=== PATIENT | female | born 1940 | race Caucasian/White ===

== ENCOUNTER 2022-06-25 15:21 | Inpatient (IN) | payer BC, MEDICARE ==
[~2022-06-25] VITALS: Ht 165.1 cm; Wt 52.2 kg
[2022-06-25] MEDS ORDERED: CEFEPIME 1 GM in IV D5W 50 ML IV ONE (16:00)
[2022-06-25] MEDS ORDERED: VANCOMYCIN 1 GM in IV D5W 250 ML IV ONE (16:00)
[2022-06-25 16:09] LABS: BASOPHILS # (AUTO) 0.1 K/uL (0.0-0.2); BASOPHILS % (AUTO) 0.5 % (0.0-2.0); EOSINOPHILS % (AUTO) 3.5 % (0.0-6.0); HEMATOCRIT 37 % (33-45); HEMOGLOBIN 11.9 g/dL (11.5-14.8); LYMPHOCYTES # (AUTO) 2.3 K/uL (0.8-4.8); LYMPHOCYTES % (AUTO) 22.4 % (20.0-44.0); MEAN CORPUSCULAR HGB CONC 33 g/dl (31.0-36.0); MEAN CORPUSCULAR VOLUME 93 fL (82-100); MONOCYTES # (AUTO) 0.9 K/uL (0.1-1.30); MONOCYTES % (AUTO) 9.2 % (2.0-12.0); NEUTROPHILS # (AUTO) 6.6 K/uL (1.8-8.9); NEUTROPHILS % (AUTO) 64.4 % (43.0-81.0); RED BLOOD CELL COUNT(AUTO) 3.97 MIL/uL (4.0-5.2); WHITE BLOOD COUNT (AUTO) 10.2 K/uL (4.3-11.0)
[2022-06-25] MEDS ORDERED: BREX1TAB PO (16:13)
[2022-06-25] MEDS ORDERED: OMEG-167 PO (16:13)
[2022-06-25] MEDS ORDERED: CELE100C98 PO (16:13)
[2022-06-25] MEDS ORDERED: DONE10TA44 PO (16:13)
[2022-06-25] MEDS ORDERED: ATOR10TA PO (16:13)
[2022-06-25] MEDS ORDERED: DIVA125T32 PO (16:13)
[2022-06-25] MEDS ORDERED: FURO20TA4 PO (16:13)
--- NOTE | 2022-06-25 16:14 | NUR ---
CLEANSED L LOWER EXTREMITY WOUND WITH HYDROGEN PEROXIDE. FLUSHED WOUND WITH NORMAL SALINE. LEFT OPEN TO AIR. NO MAGGOTS LEFT IN THE WOUND. WILL CONTINUE TO MONITOR.
[2022-06-25 16:20] LABS: CALCIUM, SERUM 8.8 mg/dL (8.5-10.1); CARBON DIOXIDE 27 mmol/L (21-32); CHLORIDE 106 mmol/L (98-107); CREATININE 1.4 mg/dL (0.6-1.3); GLUCOSE 104 mg/dL (74-106); POTASSIUM 3.7 mmol/L (3.5-5.1); SODIUM SERUM 142 mmol/L (136-145); UREA NITROGEN, BLOOD 21 mg/dL (7-18)
[2022-06-25 16:37] LABS: ALANINE AMINOTRANSFERASE 16 U/L (12-78); ALBUMIN 3.3 g/dL (3.4-5.0); ALKALINE PHOSPHATASE 86 U/L (46-116); ASPARTATE AMINOTRANSFERASE 15 U/L (15-37); BILIRUBIN,DIRECT 0.1 mg/dL (0.0-0.2); BILIRUBIN,TOTAL 0.5 mg/dL (0.2-1.0); TOTAL PROTEIN, SERUM 6.7 g/dL (6.4-8.2)
[2022-06-25 16:56] LABS: PLATELET COUNT (AUTO) 139 K/uL (150-450)
[2022-06-25] MEDS ORDERED: IV NS 0.9% 1,000 ML IV ONE (17:30)
--- NOTE | 2022-06-25 19:02 | NUR ---
URINE SAMPLE COLLECTED AND SENT TO LAB
[2022-06-25 19:46] LABS: BILIRUBIN,URINE NEGATIVE (NEGATIVE); COLOR,URINE YELLOW (YELLOW); LEUKOCYTE ESTERASE ,URINE LARGE (NEGATIVE); NITRITE, URINE POSITIVE (NEGATIVE); PROTEIN,URINE NEGATIVE (NEGATIVE); UGLUCOSE NEGATIVE (NEGATIVE); UROBILINOGEN,URINE 0.2 EU/dL (0.2)
[2022-06-25 19:51] LABS: BACTERIA,URINE 2+ /HPF (None Seen); MUCUS,URINE Few /LPF (None Seen); SQUAMOUS EPITHELIAL CELL,UR 0-2 /HPF (None Seen); WBC,URINE 51-80 /HPF (0-3)
[2022-06-25] MEDS ORDERED: ONDANSETRON HCL/PF 4 MG/2 ML VIAL IVP PRN (23:00)
[2022-06-25] MEDS ORDERED: ACETAMINOPHEN 325 MG TABLET PO PRN (23:00)
[2022-06-25] MEDS ORDERED: MAGNESIUM HYDROXIDE 30 ML UDC PO PRN (23:00)
[2022-06-25] MEDS ORDERED: CELECOXIB 100 MG CAPSULE ONE (23:39)
[2022-06-25] MEDS ORDERED: DIVALPROEX SODIUM 250 MG TABLET.DR PO ONE (23:39)
[2022-06-25] MEDS ORDERED: CEFTRIAXONE 1 G VIAL ONE (23:40)
[2022-06-25] MEDS: DIVALPROEX SODIUM 125 MG TABLET.DR PO SCH (23:49)
[2022-06-25] MEDS: CELECOXIB 100 MG CAPSULE PO SCH (23:49)
[2022-06-25] MEDS: CEFTRIAXONE 1 G in IV D5W 50 ML IV SCH (23:49)
[2022-06-26] MEDS ORDERED: ENOXAPARIN SODIUM 30 MG/0.3 ML DISP.SYRIN ONE (01:37)
[2022-06-26] MEDS: IV NS 0.9% 1,000 ML IV PRN ×2 (01:51→11:21)
[2022-06-26] MEDS: ENOXAPARIN SODIUM 30 MG/0.3 ML DISP.SYRIN SQ SCH ×2 (01:52→22:00)
--- NOTE | 2022-06-26 01:53 | NUR ---
NEW IV ESTABLISHED 20G RF
--- NOTE | 2022-06-26 04:30 | NUR ---
PATIENT RESTING COMFORTABLY WITH DAUGHTER AT BEDSIDE
[2022-06-26 05:49] LABS: BASOPHILS % (AUTO) 0.6 % (0.0-2.0); EOSINOPHILS % (AUTO) 6.4 % (0.0-6.0); HEMATOCRIT 29 % (33-45); HEMOGLOBIN 9.6 g/dL (11.5-14.8); LYMPHOCYTES # (AUTO) 1.8 K/uL (0.8-4.8); LYMPHOCYTES % (AUTO) 25.2 % (20.0-44.0); MEAN CORPUSCULAR HGB CONC 33 g/dl (31.0-36.0); MEAN CORPUSCULAR VOLUME 93 fL (82-100); MONOCYTES # (AUTO) 0.8 K/uL (0.1-1.30); MONOCYTES % (AUTO) 11.5 % (2.0-12.0); NEUTROPHILS # (AUTO) 4.1 K/uL (1.8-8.9); NEUTROPHILS % (AUTO) 56.3 % (43.0-81.0); PLATELET COUNT (AUTO) 118 K/uL (150-450); RED BLOOD CELL COUNT(AUTO) 3.15 MIL/uL (4.0-5.2); WHITE BLOOD COUNT (AUTO) 7.2 K/uL (4.3-11.0)
[2022-06-26 06:15] LABS: CALCIUM, SERUM 7.1 mg/dL (8.5-10.1); CARBON DIOXIDE 24 mmol/L (21-32); CHLORIDE 115 mmol/L (98-107); CREATININE 1.1 mg/dL (0.6-1.3); GLUCOSE 85 mg/dL (74-106); MAGNESIUM 1.7 mg/dL (1.8-2.4); PHOSPHORUS 2.9 mg/dL (2.5-4.9); POTASSIUM 3.5 mmol/L (3.5-5.1); SODIUM SERUM 147 mmol/L (136-145); UREA NITROGEN, BLOOD 13 mg/dL (7-18)
[2022-06-26 06:19] LABS: CHOLESTEROL 106 mg/dL (<200); HDL CHOLESTEROL 44 mg/dL (40-60); LDL 56 mg/dL (0-99); TRIGLYCERIDES 38 mg/dL (30-150)
--- NOTE | 2022-06-26 07:30 | NUR ---
RECEIVED PT FROM [facility] PT ASLEEPY RESPIRATION Spont and easy doughter at bed side condition up date
--- NOTE | 2022-06-26 07:41 | NUR ---
GOT BED 327-2
--- NOTE | 2022-06-26 08:17 | NUR ---
TO ROOM 327-2 HAND OFF TO TIMUR. Danyel RN OPEN WOUND on lt leg redness and clean and dry
--- NOTE | 2022-06-26 08:30 | NUR ---
RN NOTE PATIENT CAME TO UNIT FROM ER, REPORT RECEIVED FROM ER NURSE. PATIENT CAME VIA GURNEY WITH NO SIGNS OF DISTRESS NOTED. PATIENT WAS ORIENTED TO ROOM SET UP AND EDUCATED ON THE USE OF CALL BOYCE. NAME ARM BAND ON, ALL BELONGINGS CHECKED AND SIGNED. SKIN ASSESSMENT DONE AND PICTURES TAKEN. PATIENT AWAKE IN BED RESTING. A/O X 3, CONFUSED AT TIMES. NO PAIN NOTED AT THIS TIME. ON ROOM AIR, NO DISTRESS OR SHORTNESS OF BREATH NOTED. IV ACCESS RAC #18G, INTACT, PATENT AND FLUSHING WELL. FALL AND SAFETY MEASURES IN PLACE, BED IN LOW AND LOCK POSITION, CALL LIGHT AND TABLE WITHIN EASY REACH, SIDE RAILS UP X2. WILL CONTINUE TO MONITOR.
--- NOTE | 2022-06-26 09:27 | NUR ---
WOUND CARE CONSULT: PT PRESENTS WITH LEFT LOWER LEG WOUND AND SOME REDNESS WITH EDEMA TO LOWER EXTREMITIES, PRESENT ON ADMISSION. DR MARIANO CALLED FOR DPM CONSULT. IN AGREEMENT WITH PLAN OF CARE.
[2022-06-26] MEDS ORDERED: MAGNESIUM OXIDE 400 MG TABLET PO ONE (10:00)
[2022-06-26] MEDS: CELECOXIB 100 MG CAPSULE PO SCH ×2 (11:11→16:50)
[2022-06-26] MEDS: DIVALPROEX SODIUM 125 MG TABLET.DR PO SCH ×2 (11:11→22:00)
[2022-06-26 13:29] VITALS: BP 136/58
--- NOTE | 2022-06-26 15:18 | NUR ---
RN NOTE LAB CALLED PATIENT BLOOD CULTURE CAME BACK POSITIVE (GRAM POSITIVE COCCI IN CLUSTERS) DOCTOR INFORMED AND CHARGE NURSE AWARE.
[2022-06-26 16:00] VITALS: BP 140/89
[2022-06-26] MEDS: VANCOMYCIN 1 GM in IV D5W 250 ML IV SCH (16:51)
[2022-06-26] MEDS: ATORVASTATIN 10 MG TABLET PO SCH (17:17)
--- NOTE | 2022-06-26 19:34 | NUR ---
RN CLOSING NOTE PATIENT AWAKE IN BED RESTING. A/O X 3, CONFUSED AT TIMES. NO PAIN NOTED AT THIS TIME. ON ROOM AIR, NO DISTRESS OR SHORTNESS OF BREATH NOTED. IV ACCESS LAC #18G, INTACT, PATENT AND FLUSHING WELL. SCHEDULE MEDICATIONS GIVEN. FALL AND SAFETY MEASURES IN PLACE, BED IN LOW AND LOCK POSITION, CALL LIGHT AND TABLE WITHIN EASY REACH, SIDE RAILS UP X2. WILL ENDORSE TO BULL LADLE TENDER.
--- NOTE | 2022-06-26 19:44 | NUR ---
MS/TELE/RN RECEIVED PATIENT IN BED APPEARS SLEEPING, NO SIGNS OF DISTRESS NOTED, CALL LIGHT IN REACH FALL PRECAUTIONS PER PROTOCOL IMPLEMENTED, WILL MONITOR.
[2022-06-26 20:37] VITALS: BP 130/69
[2022-06-26] MEDS: CEFTRIAXONE 1 G in IV D5W 50 ML IV SCH (20:52)
[2022-06-26] MEDS: DONEPEZIL 5 MG TABLET PO SCH (22:00)
[2022-06-27] MEDS ORDERED: HALOPERIDOL LACTATE INJ 5 MG/ML VIAL IV ONE
--- NOTE | 2022-06-27 01:12 | NUR ---
MS/TELE/RN PATIENT IS PROGRESSIVELY CONFUSED AND AGITATED, YELLING , TRYING TO GET OUT OF BED, VERY HIGH FALL RISK, TRYING TO HIT ANYBODY WHO COMES NEAR HER, OBTAINED AN ORDER FOR HALDOL 1 MG IVP X 1. CHEMIST STEROIDS WAS CALLED TO HELP IN ADMINISTERING THE MEDICATION. WILL CLOSELY MONITOR FOR SAFETY.
--- NOTE | 2022-06-27 02:22 | NUR ---
MS/TELE/RN PATIENT UNABLE TO URINATE, BLADDER SCAN DONE, >400 MLS. OBTAINED AN ORDER TO DO STRAIGHT CATH X 1. STRAIGHT CATH DONE, 410 MLS, CLEAR, LUAN URINE OUTPUT NOTED. WILL CONTINUE TO MONITOR.
--- NOTE | 2022-06-27 06:21 | NUR ---
MS/TELE/RN PATIENT IS SLEEPING, NO SIGNS OF DISTRESS NOTED, CALL LIGHT IN REACH, ALL NEEDS ATTENDED AT THIS TIME, WILL CONTINUE TO MONITOR.
[2022-06-27 06:46] LABS: BASOPHILS % (AUTO) 0.2 % (0.0-2.0); EOSINOPHILS % (AUTO) 4.4 % (0.0-6.0); HEMATOCRIT 31 % (33-45); LYMPHOCYTES # (AUTO) 1.4 K/uL (0.8-4.8); LYMPHOCYTES % (AUTO) 17.4 % (20.0-44.0); MEAN CORPUSCULAR HGB CONC 33 g/dl (31.0-36.0); MEAN CORPUSCULAR VOLUME 93 fL (82-100); MONOCYTES # (AUTO) 0.9 K/uL (0.1-1.30); MONOCYTES % (AUTO) 11.6 % (2.0-12.0); NEUTROPHILS # (AUTO) 5.2 K/uL (1.8-8.9); NEUTROPHILS % (AUTO) 66.4 % (43.0-81.0); PLATELET COUNT (AUTO) 117 K/uL (150-450); RED BLOOD CELL COUNT(AUTO) 3.31 MIL/uL (4.0-5.2); WHITE BLOOD COUNT (AUTO) 7.9 K/uL (4.3-11.0)
[2022-06-27 07:02] LABS: CALCIUM, SERUM 8.4 mg/dL (8.5-10.1); CREATININE 1.2 mg/dL (0.6-1.3); MAGNESIUM 2.2 mg/dL (1.8-2.4); POTASSIUM 4.1 mmol/L (3.5-5.1)
--- NOTE | 2022-06-27 07:20 | NUR ---
RN CLOSING NOTE PATIENT AWAKE TRYING TO GET OUT OF HER ROOM, PATIENT IS UNSTABLE GATE, A/O X 2-3, CONFUSED, COMBATIVE, SCREAMING, TRYING TO PULL IV LINES AND NOT FOLLOWING REDIRECTIONS. NO PAIN NOTED AT THIS TIME. ON ROOM AIR, NO DISTRESS OR SHORTNESS OF BREATH NOTED. IV ACCESS RFA #22G, INTACT, PATENT AND FLUSHING WELL, PATIENT HAD PULLED OUT HER IV TWICE. FALL AND SAFETY MEASURES IN PLACE, BED IN LOW AND LOCK POSITION, CALL LIGHT AND TABLE WITHIN EASY REACH, SIDE RAILS UP X2. ORDER FOR WRIST SOFT RESTRAINTS WAS PLACED. WILL CONTINUE TO MONITOR. Addendum: 06/27/22 at 1856 by Ailyn Smith RN RN OPENING NOTE
[2022-06-27 08:00] VITALS: BP 153/73
--- NOTE | 2022-06-27 08:40 | NUR ---
WOUND CARE CONSULT: PT SEEN FOR RASH TO BREASTFOLDS. RECOMMENDATIONS MADE FOR SKIN PROTECTION AND CARE. DISCUSSED WITH NURSING STAFF. MD IN AGREEMENT WITH PLAN OF CARE.
[2022-06-27] MEDS: CELECOXIB 100 MG CAPSULE PO SCH ×2 (10:03→16:13)
[2022-06-27] MEDS: THERAHONEY GEL 1.5 OZ TUBE TP SCH (10:04)
[2022-06-27] MEDS: Z GUARD REMEDY 4 OZ OINT TP SCH (10:04)
[2022-06-27] MEDS: CLOTRIMAZOLE 1% 15 GM TUBE TP SCH ×2 (10:04→16:12)
[2022-06-27] MEDS: DIVALPROEX SODIUM 125 MG TABLET.DR PO SCH ×2 (10:04→21:27)
[2022-06-27 16:00] VITALS: BP 151/76
[2022-06-27] MEDS: VANCOMYCIN 1 GM in IV D5W 250 ML IV SCH (16:13)
[2022-06-27] MEDS: ATORVASTATIN 10 MG TABLET PO SCH (17:23)
--- NOTE | 2022-06-27 18:56 | NUR ---
RN CLOSING NOTE PATIENT AWAKE RESTING IN BED, DAUGHTER AT BED SIDE A/O X 2-3, CONFUSED AT TIMES. NO PAIN NOTED AT THIS TIME. ON ROOM AIR, NO DISTRESS OR SHORTNESS OF BREATH NOTED. IV ACCESS RFA #22G, INTACT, PATENT AND FLUSHING WELL, PATIENT. SCHEDULED MEDICATIONS ADMINISTERED. WOUND CARE IMPLEMENTED. PATIENT ON RESTRAINTS. PATIENT WAS TURNED AND REPOSITIONED PER PROTOCOL. FALL AND SAFETY MEASURES IN PLACE, BED IN LOW AND LOCK POSITION, CALL LIGHT AND TABLE WITHIN EASY REACH, SIDE RAILS UP X2. WILL ENDORSE TO WAY INSPECTOR.
--- NOTE | 2022-06-27 19:57 | NUR ---
MS RN OPENING NOTES: RECEIVED PATIENT SLEEP IN BED COMFORTABLY AROUSABLE TO VERBAL STIMULI, BED IN LOW POSITION CALL LIGHTS WITHIN REACH, NO COMPLAIN OF PAIN AND DISCOMFORT AT THIS TIME, ON ROOM AIR SATURATING WELL, PATIENT WITH IV LINE AT RFA#22 WITH ONGOING NSS@75ML/HR INFUSING WELL, PATIENT ON BILATERAL SOFT RESTRAINT, PATIENT KEPT CLEAN AND DRY ALL NEEDS MET WILL CONTINUE TO MONITOR.
[2022-06-27 20:00] VITALS: BP 153/78
[2022-06-27] MEDS: DONEPEZIL 5 MG TABLET PO SCH (21:27)
[2022-06-27] MEDS: ENOXAPARIN SODIUM 30 MG/0.3 ML DISP.SYRIN SQ SCH (21:28)
[2022-06-27] MEDS: CEFTRIAXONE 1 G in IV D5W 50 ML IV SCH (21:29)
[2022-06-28] VITALS: BP 127/74
[2022-06-28 07:05] LABS: BASOPHILS % (AUTO) 0.3 % (0.0-2.0); HEMATOCRIT 33 % (33-45); LYMPHOCYTES # (AUTO) 1.2 K/uL (0.8-4.8); LYMPHOCYTES % (AUTO) 12.4 % (20.0-44.0); MEAN CORPUSCULAR HGB CONC 34 g/dl (31.0-36.0); MEAN CORPUSCULAR VOLUME 92 fL (82-100); MONOCYTES # (AUTO) 0.8 K/uL (0.1-1.30); MONOCYTES % (AUTO) 8.5 % (2.0-12.0); NEUTROPHILS # (AUTO) 7.5 K/uL (1.8-8.9); NEUTROPHILS % (AUTO) 76.8 % (43.0-81.0); PLATELET COUNT (AUTO) 137 K/uL (150-450); RED BLOOD CELL COUNT(AUTO) 3.55 MIL/uL (4.0-5.2); WHITE BLOOD COUNT (AUTO) 9.8 K/uL (4.3-11.0)
--- NOTE | 2022-06-28 07:20 | NUR ---
MS RN CLOSING NOTES: RECEIVED PATIENT AWAKE IN BED BED IN LOW POSITION CALL LIGHTS WITHIN REACH, NO COMPLAIN OF PAIN AND DISCOMFORT AT THIS TIME, ON ROOM AIR SATURATING WELL IV LINE RFA#20 OF NSS@75ML/HR INFUSING WELL, PATIENT ON BILATERAL SOFT WRIST RESTRAINT, PATIENT KEPT CLEAN AND DRY ALL NEEDS MET ENDORSE TO INCOMING SHIFT.
[2022-06-28 07:21] LABS: CREATININE 1.2 mg/dL (0.6-1.3); POTASSIUM 4.1 mmol/L (3.5-5.1)
--- NOTE | 2022-06-28 07:30 | NUR ---
MS RN OPENING NOTES: RECEIVED PATIENT AWAKE IN BED COMFORTABLY . ALL SAFETY MEASURES IN PLACE .BED IN LOW POSITION AND LOCKED. CALL LIGHTS WITHIN REACH, NO COMPLAIN OF PAIN AND DISCOMFORT AT THIS TIME, ON ROOM AIR SATURATING WELL, PATIENT WITH IV LINE AT RFA#22 WITH ONGOING NS@75ML/HR INFUSING WELL, PATIENT ON BILATERAL SOFT RESTRAINT, SKIN CHECKS DONE EVERY 15 MIN FOR CIRCULATION AND SKIN MANAGEMENT. PATIENT KEPT CLEAN AND DRY. ALL NEEDS ATTENDED. WILL CONTINUE TO MONITOR CLOSELY.
[2022-06-28 07:32] LABS: CALCIUM, SERUM 8.4 mg/dL (8.5-10.1)
[2022-06-28 08:55] VITALS: BP 156/68
[2022-06-28] MEDS: DIVALPROEX SODIUM 125 MG TABLET.DR PO SCH ×2 (09:51→21:04)
[2022-06-28] MEDS: THERAHONEY GEL 1.5 OZ TUBE TP SCH (09:51)
[2022-06-28] MEDS: Z GUARD REMEDY 4 OZ OINT TP SCH (09:51)
[2022-06-28] MEDS: CELECOXIB 100 MG CAPSULE PO SCH ×2 (09:51→16:59)
[2022-06-28] MEDS: IV NS 0.9% 1,000 ML IV PRN (09:59)
[2022-06-28] MEDS: CLOTRIMAZOLE 1% 15 GM TUBE TP SCH ×2 (14:27→17:00)
[2022-06-28 15:50] VITALS: BP 160/96
[2022-06-28] MEDS: VANCOMYCIN 1 GM in IV D5W 250 ML IV SCH (16:59)
[2022-06-28] MEDS: ATORVASTATIN 10 MG TABLET PO SCH (17:30)
--- NOTE | 2022-06-28 19:03 | NUR ---
MS RN CLOSING NOTES: PATIENT AWAKE IN BED COMFORTABLY . ALL SAFETY MEASURES IN PLACE .BED IN LOW POSITION AND LOCKED. CALL LIGHTS WITHIN REACH, NO COMPLAIN OF PAIN AND DISCOMFORT AT THIS TIME, ON ROOM AIR SATURATING WELL, PATIENT WITH IV LINE AT RFA#22 WITH ONGOING NS@75ML/HR INFUSING WELL, ALL DUE MEDS GIVEN ORDERED. PATIENT KEPT CLEAN AND DRY. ALL NEEDS ATTENDED. WILL ENDORSE FOR THAIS.
--- NOTE | 2022-06-28 19:53 | NUR ---
RN OPENING NOTES RECEIVED PT IN BED, ASLEEP, AWAKENS TO VERBAL STIMULI. AOx2. ON RA AND TOLERATING WELL. NO SOB NOTED. NO S/SX OF RESPIRATORY DISTRESS NOTED. IV ACCESS IN RFA #22G RUNNING NS @ 75 ML/HR. SAFETY PRECAUTIONS IN PLACE: BED IN LOWEST, LOCKED POSITION, SIDERAILS UPx2, AND BRAKES ON. TABLE AND CALL LIGHT WITHIN REACH. ALL NEEDS MET AT THIS TIME.
[2022-06-28 20:00] VITALS: BP 140/91
[2022-06-28] MEDS: DONEPEZIL 5 MG TABLET PO SCH (21:04)
[2022-06-28] MEDS: CEFTRIAXONE 1 G in IV D5W 50 ML IV SCH (21:04)
[2022-06-28] MEDS: ENOXAPARIN SODIUM 30 MG/0.3 ML DISP.SYRIN SQ SCH (21:06)
[2022-06-29] MEDS: IV NS 0.9% 1,000 ML IV PRN ×2 (00:33→15:53)
[2022-06-29 06:15] LABS: BASOPHILS % (AUTO) 0.3 % (0.0-2.0); EOSINOPHILS % (AUTO) 4.9 % (0.0-6.0); HEMATOCRIT 31 % (33-45); HEMOGLOBIN 10.3 g/dL (11.5-14.8); LYMPHOCYTES # (AUTO) 1.4 K/uL (0.8-4.8); LYMPHOCYTES % (AUTO) 16.6 % (20.0-44.0); MEAN CORPUSCULAR HGB CONC 33 g/dl (31.0-36.0); MEAN CORPUSCULAR VOLUME 92 fL (82-100); MONOCYTES # (AUTO) 0.8 K/uL (0.1-1.30); MONOCYTES % (AUTO) 9.4 % (2.0-12.0); NEUTROPHILS % (AUTO) 68.8 % (43.0-81.0); PLATELET COUNT (AUTO) 129 K/uL (150-450); RED BLOOD CELL COUNT(AUTO) 3.36 MIL/uL (4.0-5.2); WHITE BLOOD COUNT (AUTO) 8.7 K/uL (4.3-11.0)
[2022-06-29 06:45] LABS: CALCIUM, SERUM 8.1 mg/dL (8.5-10.1); CREATININE 1.1 mg/dL (0.6-1.3)
--- NOTE | 2022-06-29 07:35 | NUR ---
MS RN OPENING NOTES RECEIVED PT IN BED WITH HOB ELEVATED, AWAKE, AOX1-2, AWAKENS TO VERBAL STIMULI. ON RA AND TOLERATING WELL. NO SOB NOTED. NO S/SX OF RESPIRATORY DISTRESS NOTED. IV ACCESS IN RFA #22G RUNNING NS @ 75 ML/HR. SAFETY PRECAUTIONS IN PLACE: BED IN LOWEST, LOCKED POSITION, SIDERAILS UPx2, AND BRAKES ON. TABLE AND CALL LIGHT WITHIN REACH. WILL CONTINUE TO MONITOR DURING MY SHIFT.
--- NOTE | 2022-06-29 07:49 | NUR ---
RN CLOSING NOTES PT IN BED, ASLEEP, AWAKENS TO VERBAL STIMULI. NO DISTRESS NOTED. REPORT GIVEN TO DAYSHIFT RN.
[2022-06-29] MEDS: CELECOXIB 100 MG CAPSULE PO SCH ×2 (08:46→17:16)
[2022-06-29] MEDS: DIVALPROEX SODIUM 125 MG TABLET.DR PO SCH ×2 (08:47→20:56)
[2022-06-29] MEDS: THERAHONEY GEL 1.5 OZ TUBE TP SCH (08:48)
[2022-06-29] MEDS: CLOTRIMAZOLE 1% 15 GM TUBE TP SCH ×2 (08:58→17:19)
[2022-06-29] MEDS: Z GUARD REMEDY 4 OZ OINT TP PRN ×3 (08:59→09:27)
[2022-06-29 09:05] VITALS: BP 142/107
[2022-06-29] MEDS: Z GUARD REMEDY 4 OZ OINT TP SCH (09:27)
--- NOTE | 2022-06-29 15:43 | NUR ---
RN NOTES HOME MED- REXULTI 1MG TAB RECEIVED AND SENT TO THE PHARMACY
--- NOTE | 2022-06-29 16:21 | NUR ---
RN NOTES WOUND TREATMENT GIVEN.
[2022-06-29 16:30] VITALS: BP 151/78
[2022-06-29] MEDS: ATORVASTATIN 10 MG TABLET PO SCH (17:16)
[2022-06-29] MEDS: ENSURE ENLIVE CHOC 237 ML CAN PO SCH (17:18)
--- NOTE | 2022-06-29 18:47 | NUR ---
MS RN CLOSING NOTES PT IN BED WITH HOB ELEVATED, AWAKE, AOX1-2, COOPERATIVE, ON RA AND TOLERATING WELL. NO SOB NOTED. NO S/SX OF RESPIRATORY DISTRESS NOTED. IV ACCESS IN RFA #22G RUNNING NS @ 75 ML/HR. SAFETY PRECAUTIONS MAINTAINE: BED IN LOWEST, LOCKED POSITION, SIDERAILS UPx2, AND BRAKES ON. TABLE AND CALL LIGHT WITHIN REACH. ALL NEEDS MET, ALL DUE MEDS GIVEN. WILL ENDORSE TO THE FIXER SUPERVISOR.
--- NOTE | 2022-06-29 19:15 | NUR ---
RN OPENING NOTE' RECEIVED PT IN BED AWAKE. A/OX 1-2. PT STATED SHE DOESN'T KNOW WHERE SHE IS. ORIENTED TO TIME AND PLACE. PT STILL CONFUSED. RESTING COMFORTABLY IN BED. NO C/O OF PAIN AT THIS TIME. NO SIGNS OF RESPIRATORY DISTRESS OR SOB NOTED. IV IN R FA 22G INFUSING 75ML/HR OF NS. SAFETY CHECKS IN PLACE: BED IN LOWEST POSITION, BED LOCKED, CALL LIGHT WITHIN REACH, SIDE RAILS X2. WILL CONT PLAN OF CARE.
[2022-06-29 20:00] VITALS: BP 157/69
[2022-06-29] MEDS ORDERED: VANCOMYCIN HCL 0.75 GM in IV D5W 250 ML IV SCH (20:00)
[2022-06-29] MEDS: PROSOURCE / PROSTAT (PYXIS) 30 ML UDC PO SCH (20:00)
[2022-06-29] MEDS: ENOXAPARIN SODIUM 30 MG/0.3 ML DISP.SYRIN SQ SCH (20:54)
--- NOTE | 2022-06-29 21:14 | NUR ---
RN NOTE PT STILL HAS VANCOMYCIN INFUSING. WILL ADMIN ROCEPHIN ONCE VANCOMYCIN IS COMPLETE. PT RESTING COMFORTABLY IN BED.
[2022-06-29] MEDS: DONEPEZIL 5 MG TABLET PO SCH (22:04)
[2022-06-29] MEDS: CEFTRIAXONE 1 G in IV D5W 50 ML IV SCH (22:05)
--- NOTE | 2022-06-30 06:31 | NUR ---
RN CLOSING NOTE PT IN BED AWAKE, A/XO2. NO SIGNS OF RESPIRATORY DISTRESS OR SOB AT THIS TIME. STABLE ON RA. PT WAS CALM AND COOPERATIVE ALL SHIFT. NO C/O OF PAIN AT THIS TIME. IV IN RIGHT FA 22G INFUSING 75ML/HR OF NS. ALL SCHEDULE MEDS GIVEN. ALL NEEDS ATTENDED TO. SAFETY CHECKS IN PLACE: BED LOCKED, BED IN LOWEST POSITION, CALL LIGHT WITHIN REACH, SIDE RAILS X2. WILL ENDORSE TO DAY SHIFT NURSE FOR THAIS.
[2022-06-30 07:00] LABS: BASOPHILS % (AUTO) 0.4 % (0.0-2.0); EOSINOPHILS % (AUTO) 3.9 % (0.0-6.0); HEMATOCRIT 34 % (33-45); HEMOGLOBIN 11.3 g/dL (11.5-14.8); LYMPHOCYTES # (AUTO) 1.5 K/uL (0.8-4.8); LYMPHOCYTES % (AUTO) 14.7 % (20.0-44.0); MEAN CORPUSCULAR HGB CONC 33 g/dl (31.0-36.0); MEAN CORPUSCULAR VOLUME 92 fL (82-100); MONOCYTES # (AUTO) 0.9 K/uL (0.1-1.30); MONOCYTES % (AUTO) 8.6 % (2.0-12.0); NEUTROPHILS # (AUTO) 7.7 K/uL (1.8-8.9); NEUTROPHILS % (AUTO) 72.4 % (43.0-81.0); PLATELET COUNT (AUTO) 164 K/uL (150-450); WHITE BLOOD COUNT (AUTO) 10.6 K/uL (4.3-11.0)
[2022-06-30 07:26] LABS: CALCIUM, SERUM 8.4 mg/dL (8.5-10.1); CREATININE 1.1 mg/dL (0.6-1.3); POTASSIUM 3.5 mmol/L (3.5-5.1)
--- NOTE | 2022-06-30 07:35 | NUR ---
MS RN OPENING NOTES RECEIVED PT IN BED WITH HOB ELEVATED, AWAKE, AOX1-2, PATIENT APPEARS TO BE CONFUSED SHE WANTED TO GET OUT OF BED, PATIENT FOLLOWS COMMAND WHEN TOLD NOT TO GET OUT OF BED, ON RA AND TOLERATING WELL. NO SOB NOTED. NO S/SX OF RESPIRATORY DISTRESS NOTED, BREATHING EVEN AND UNLABORED, IV ACCESS IN RFA #22G RUNNING NS @ 75 ML/HR. SAFETY PRECAUTIONS IN PLACE: BED IN LOWEST, LOCKED POSITION, SIDERAILS UPx3, AND BRAKES ON. TABLE AND CALL LIGHT WITHIN REACH. WILL CONTINUE TO MONITOR DURING MY SHIFT FOR SAFETY AND ASPIRATION PRECAUTIONS.
[2022-06-30] MEDS: ENSURE ENLIVE CHOC 237 ML CAN PO SCH ×2 (07:47→16:05)
[2022-06-30] MEDS: IV NS 0.9% 1,000 ML IV PRN ×2 (07:47→21:15)
[2022-06-30] MEDS: CELECOXIB 100 MG CAPSULE PO SCH ×2 (08:45→16:09)
[2022-06-30] MEDS: REXULTI 1 MG PO SCH (08:45)
[2022-06-30] MEDS: CLOTRIMAZOLE 1% 15 GM TUBE TP SCH ×2 (08:46→16:15)
[2022-06-30] MEDS: Z GUARD REMEDY 4 OZ OINT TP PRN ×3 (08:46→08:54)
[2022-06-30] MEDS: THERAHONEY GEL 1.5 OZ TUBE TP SCH (08:46)
[2022-06-30] MEDS: DIVALPROEX SODIUM 125 MG TABLET.DR PO SCH ×2 (08:48→21:27)
[2022-06-30] MEDS: PROSOURCE / PROSTAT (PYXIS) 30 ML UDC PO SCH ×2 (08:50→16:04)
[2022-06-30] MEDS: Z GUARD REMEDY 4 OZ OINT TP SCH (08:55)
--- NOTE | 2022-06-30 14:01 | NUR ---
RN NOTES PATIENT'S RFA G#22 IV LINE WAS LEAKING, STARTED A NEW IV LINE ON THE RFA G#20, PATENT, FLUSHES WELL, WRAPPED WITH KERLIX.
--- NOTE | 2022-06-30 14:03 | NUR ---
RN NOTES WOUND CARE PROVIDED ORDERED ON L LOWER LEG, APPLIED Z GUARD AND ANTIFUNGAL CREAM ON THE BILATERAL UNDER BREAST WELL
[2022-06-30] MEDS: DOXYCYCLINE HYCLATE (100 MG) 100 MG TABLET PO SCH ×2 (14:07→21:27)
--- NOTE | 2022-06-30 15:44 | NUR ---
RN NOTES AT BEDSIDE
[2022-06-30 15:58] VITALS: BP 154/80
[2022-06-30] MEDS: ATORVASTATIN 10 MG TABLET PO SCH (17:27)
--- NOTE | 2022-06-30 18:45 | NUR ---
MS RN CLOSING NOTES PT IN BED WITH HOB ELEVATED, SLEEPING, AOX1-2, ON RA AND TOLERATING WELL. NO SOB NOTED. NO S/SX OF RESPIRATORY DISTRESS NOTED, BREATHING EVEN AND UNLABORED, IV ACCESS IN LFA #22G RUNNING NS @ 75 ML/HR. WOUND CARE PROVIDED. SAFETY PRECAUTIONS MAINTAINED: BED IN LOWEST, LOCKED POSITION, SIDERAILS UPx3, AND BRAKES ON. TABLE AND CALL LIGHT WITHIN REACH. ALL DUE MEDS GIVEN, ALL NEEDS MET. ENDORSED TO WIRELESS TECHNICIAN NURSE.
[2022-06-30 20:00] VITALS: BP 177/77
[2022-06-30] MEDS: DONEPEZIL 5 MG TABLET PO SCH (21:27)
[2022-06-30] MEDS: ENOXAPARIN SODIUM 30 MG/0.3 ML DISP.SYRIN SQ SCH (21:36)
--- NOTE | 2022-06-30 21:41 | NUR ---
ANTICOAGULANT H/H 11. Plt 164. No bleeding. Given Lovenox injection, co signed by KENISHA Mac.
[2022-07-01 06:13] LABS: BASOPHILS # (AUTO) 0.1 K/uL (0.0-0.2); BASOPHILS % (AUTO) 0.6 % (0.0-2.0); EOSINOPHILS % (AUTO) 7.3 % (0.0-6.0); HEMATOCRIT 33 % (33-45); LYMPHOCYTES # (AUTO) 1.4 K/uL (0.8-4.8); LYMPHOCYTES % (AUTO) 15.6 % (20.0-44.0); MEAN CORPUSCULAR HGB CONC 33 g/dl (31.0-36.0); MEAN CORPUSCULAR VOLUME 91 fL (82-100); MONOCYTES # (AUTO) 0.9 K/uL (0.1-1.30); MONOCYTES % (AUTO) 9.6 % (2.0-12.0); NEUTROPHILS # (AUTO) 6.1 K/uL (1.8-8.9); NEUTROPHILS % (AUTO) 66.9 % (43.0-81.0); PLATELET COUNT (AUTO) 142 K/uL (150-450); RED BLOOD CELL COUNT(AUTO) 3.64 MIL/uL (4.0-5.2); WHITE BLOOD COUNT (AUTO) 9.1 K/uL (4.3-11.0)
[2022-07-01 06:30] VITALS: BP 125/78
[2022-07-01 06:33] LABS: CALCIUM, SERUM 8.3 mg/dL (8.5-10.1); CREATININE 1.1 mg/dL (0.6-1.3); POTASSIUM 3.6 mmol/L (3.5-5.1)
--- NOTE | 2022-07-01 06:59 | NUR ---
END OF SHIFT REPORT Patient is Alert Oriented x2. Stable Oxygenation on room air, no acute distress. IVF infusing, on PO Doxycycline. Afebrile throughout shift. Left leg wound dressing C/D/I denies pain. Turned and repositioned, offload extremities. Incontinent care done, patient had BM during the shift. DC planning to SNF. Will endorse to oncoming RN.
--- NOTE | 2022-07-01 07:40 | NUR ---
MS RN OPENING NOTES RECEIVED PT IN BED WITH HOB ELEVATED, AWAKE, AOX1-2, RESPONSIVE BUT VOICE IS REALLY FAINT, PATIENT FOLLOWS COMMAND. ON RA AND TOLERATING WELL. NO SOB NOTED. NO S/SX OF RESPIRATORY DISTRESS NOTED, BREATHING EVEN AND UNLABORED, IV ACCESS IN LFA #22G RUNNING NS @ 75 ML/HR. SAFETY PRECAUTIONS IN PLACE: BED IN LOWEST, LOCKED POSITION, SIDERAILS UPx3, AND BRAKES ON. TABLE AND CALL LIGHT WITHIN REACH. WILL CONTINUE TO MONITOR DURING MY SHIFT FOR SAFETY AND ASPIRATION PRECAUTIONS.
[2022-07-01] MEDS: ENSURE ENLIVE CHOC 237 ML CAN PO SCH ×2 (08:17→17:02)
[2022-07-01 08:41] VITALS: BP 138/78
[2022-07-01] MEDS: CELECOXIB 100 MG CAPSULE PO SCH ×2 (08:51→17:11)
[2022-07-01] MEDS: DOXYCYCLINE HYCLATE (100 MG) 100 MG TABLET PO SCH ×2 (08:51→21:21)
[2022-07-01] MEDS: REXULTI 1 MG PO SCH (08:52)
[2022-07-01] MEDS: PROSOURCE / PROSTAT (PYXIS) 30 ML UDC PO SCH ×2 (08:54→17:11)
[2022-07-01] MEDS: CLOTRIMAZOLE 1% 15 GM TUBE TP SCH ×2 (08:55→17:24)
[2022-07-01] MEDS: THERAHONEY GEL 1.5 OZ TUBE TP SCH (08:55)
[2022-07-01] MEDS: Z GUARD REMEDY 4 OZ OINT TP PRN (08:55)
[2022-07-01] MEDS: Z GUARD REMEDY 4 OZ OINT TP SCH (08:57)
[2022-07-01] MEDS: DIVALPROEX SODIUM 125 MG TABLET.DR PO SCH ×2 (08:59→21:21)
[2022-07-01] MEDS: IV NS 0.9% 1,000 ML IV PRN (10:21)
--- NOTE | 2022-07-01 10:53 | NUR ---
RN NOTES DAUGHTER AT BEDSIDE.
--- NOTE | 2022-07-01 14:30 | NUR ---
RN NOTES IS AT BEDSIDE ASKING WHY NO MORE ATB, EXPLAINED WE SWITCHED PT TO PO PER MD ORDER. NO FURTHER QUESTIONS ASKED.
[2022-07-01 16:12] VITALS: BP 118/62
[2022-07-01] MEDS: ATORVASTATIN 10 MG TABLET PO SCH (17:11)
--- NOTE | 2022-07-01 18:30 | NUR ---
MS RN CLOSING NOTES PT IN BED WITH HOB ELEVATED, SLEEPING, AOX1-2, ON RA AND TOLERATING WELL. NO SOB NOTED. NO S/SX OF RESPIRATORY DISTRESS NOTED, BREATHING EVEN AND UNLABORED, IV ACCESS IN LFA #22G RUNNING NS @ 75 ML/HR. WOUND CARE PROVIDED. SAFETY PRECAUTIONS MAINTAINED: BED IN LOWEST, LOCKED POSITION, SIDERAILS UPx3, AND BRAKES ON. TABLE AND CALL LIGHT WITHIN REACH. ALL DUE MEDS GIVEN, ALL NEEDS MET. ENDORSED TO LEARNING ANALYST NURSE.
--- NOTE | 2022-07-01 19:30 | NUR ---
MS RN OPENING NOTE RECEIVED PT AWAKE IN BED. AOX1 AND ABLE TO MAKE NEEDS KNOWN. PT STABLE ON ROOM AIR, TOLERATING WELL. NO SOB OR S/S OF RESPIRATORY DISTRESS NOTED. IV ACCESS LFA #22G RUNNING NS @ 75 ML/HR. SAFETY PRECAUTIONS IN PLACE. BED IN LOWEST LOCKED POSITION, HOB ELEVATED, SIDE RAILS UP X3, AND CALL LIGHT AND TABLE WITHIN REACH. ALL NEEDS MET AT THIS TIME.
[2022-07-01 20:00] VITALS: BP 158/92
[2022-07-01] MEDS: DONEPEZIL 5 MG TABLET PO SCH (21:21)
[2022-07-01] MEDS: ENOXAPARIN SODIUM 30 MG/0.3 ML DISP.SYRIN SQ SCH (21:22)
--- NOTE | 2022-07-02 06:44 | NUR ---
MS RN CLOSING NOTE PT AWAKE IN BED. AOX1-2 AND ABLE TO MAKE NEEDS KNOWN. PT STABLE ON ROOM AIR, TOLERATING WELL. NO SOB OR S/S OF RESPIRATORY DISTRESS NOTED. IV ACCESS LFA #22G RUNNING NS @ 75 ML/HR. ALL DUE MEDS GIVEN ORDERED. WOUND CARE DONE. TURNED AND REPOSITIONED Q2H. SAFETY PRECAUTIONS IN PLACE AT ALL TIMES. BED IN LOWEST LOCKED POSITION, HOB ELEVATED, SIDE RAILS UP X3, AND CALL LIGHT AND TABLE WITHIN REACH. ALL NEEDS MET AT THIS TIME AND WILL ENDORSE TO ONCOMING NURSE FOR THAIS.
--- NOTE | 2022-07-02 07:20 | NUR ---
RN OPENING NOTES RECEIVED PATIENT IN BED AWAKE, NO SIGNS OF ACUTE DISTRESS NOTED. A/O X1-2. ON ROOM AIR, NO SOB NOTED, BREATHING EVEN AND UN LABORED. DENIES ANY PAIN OR DISCOMFORT AT THIS TIME. NOTED WITH IV ACCESS ON LEFT FORE ARM #22G, INTACT AND PATENT WITH NS @ 75 ML/HR INFUSING WELL. SAFETY MEASURE IN PLACE. BED IN LOWEST AND LOCKED POSITION, SIDE RAILS UP X2, CALL LIGHT PLACED WITHIN EASY REACH. WILL CONTINUE TO MONITOR PATIENT.
[2022-07-02 08:00] VITALS: BP 145/78
[2022-07-02] MEDS: CELECOXIB 100 MG CAPSULE PO SCH ×2 (08:29→17:21)
[2022-07-02] MEDS: PROSOURCE / PROSTAT (PYXIS) 30 ML UDC PO SCH ×2 (08:30→17:22)
[2022-07-02] MEDS: DOXYCYCLINE HYCLATE (100 MG) 100 MG TABLET PO SCH ×2 (08:30→21:44)
[2022-07-02] MEDS: DIVALPROEX SODIUM 125 MG TABLET.DR PO SCH ×2 (08:30→21:45)
[2022-07-02] MEDS: ENSURE ENLIVE CHOC 237 ML CAN PO SCH ×2 (08:30→17:22)
[2022-07-02] MEDS: REXULTI 1 MG PO SCH (08:30)
[2022-07-02] MEDS: THERAHONEY GEL 1.5 OZ TUBE TP SCH (08:36)
[2022-07-02] MEDS: CLOTRIMAZOLE 1% 15 GM TUBE TP SCH ×2 (08:36→17:23)
[2022-07-02] MEDS: Z GUARD REMEDY 4 OZ OINT TP SCH (08:37)
[2022-07-02] MEDS ORDERED: COLL30OI TP (09:59)
[2022-07-02] MEDS ORDERED: CLOT15CR35 TP (09:59)
[2022-07-02] MEDS ORDERED: DOXY100T2 PO (09:59)
[2022-07-02] MEDS ORDERED: Prosource PO (09:59)
[2022-07-02] MEDS ORDERED: LACT-54 PO (09:59)
[2022-07-02] MEDS ORDERED: ENOX30DI SQ (09:59)
[2022-07-02] MEDS: ATORVASTATIN 10 MG TABLET PO SCH (17:21)
--- NOTE | 2022-07-02 18:57 | NUR ---
RN CLOSING NOTES PATIENT IN BED AWAKE, NO SIGNS OF ACUTE DISTRESS NOTED. A/O X1-2. REMAINS STABLE ON ROOM AIR, NO SOB NOTED, BREATHING EVEN AND UN LABORED. DENIES ANY PAIN OR DISCOMFORT AT THIS TIME. WITH IV ACCESS ON LEFT FORE ARM #22G, INTACT AND PATENT WITH NS @ 75 ML/HR INFUSING WELL. ALL DUE MEDS GIVEN, TAKEN WELL. SAFETY MEASURE IN PLACE. BED IN LOWEST AND LOCKED POSITION, SIDE RAILS UP X2, CALL LIGHT PLACED WITHIN EASY REACH. WILL ENDORSE TO NEXT SHIFT FOR CONTINUITY OF CARE.
[2022-07-02 19:06] VITALS: BP 147/82
--- NOTE | 2022-07-02 19:31 | NUR ---
noc rn opening note received patient in bed, alert and oriented to name only. no s/s of apparent distress on room air. denies pain nor discomfort at this time. IV access noted to be out at this time-- will insert new one. safety in place. re-oriented and encouraged with the use of call light. will monitor and cont. with the plan of care for patient.
[2022-07-02 20:00] VITALS: BP 144/79
[2022-07-02] MEDS: DONEPEZIL 5 MG TABLET PO SCH (21:45)
[2022-07-02] MEDS: ENOXAPARIN SODIUM 30 MG/0.3 ML DISP.SYRIN SQ SCH (21:48)
--- NOTE | 2022-07-03 07:20 | NUR ---
rn closing note needs attended. no significant change on my shift. will endorse to morning shift rn for continuity of patient care.
--- NOTE | 2022-07-03 07:50 | NUR ---
RN OPENING NOTES RECEIVED PATIENT IN BED ASLEEP , AROUSABLE , NO SOB OR DISTRESS NOTED. A/O X1-2. ON ROOM AIR , BREATHING EVEN AND UN LABORED. NO C/O OF PAIN OR DISCOMFORT AT THIS TIME. NOTED WITH IV ACCESS ON RIGHT HAND WRIST #22G, INTACT AND PATENT WITH NS @ 75 ML/HR INFUSING WELL. SAFETY MEASURE IN PLACE. BED IN LOWEST AND LOCKED POSITION, SIDE RAILS UP X2, CALL LIGHT PLACED WITHIN EASY REACH. WILL CONTINUE TO MONITOR PATIENT.
[2022-07-03 08:00] VITALS: BP 153/95
[2022-07-03] MEDS: ENSURE ENLIVE CHOC 237 ML CAN PO SCH (08:53)
[2022-07-03] MEDS: CELECOXIB 100 MG CAPSULE PO SCH (08:53)
[2022-07-03] MEDS: DOXYCYCLINE HYCLATE (100 MG) 100 MG TABLET PO SCH (08:53)
[2022-07-03] MEDS: REXULTI 1 MG PO SCH (08:54)
[2022-07-03] MEDS: DIVALPROEX SODIUM 125 MG TABLET.DR PO SCH (08:57)
[2022-07-03] MEDS: CLOTRIMAZOLE 1% 15 GM TUBE TP SCH (08:57)
[2022-07-03] MEDS: THERAHONEY GEL 1.5 OZ TUBE TP SCH (08:58)
[2022-07-03] MEDS: IV NS 0.9% 1,000 ML IV PRN (10:18)
[2022-07-03] MEDS: PROSOURCE / PROSTAT (PYXIS) 30 ML UDC PO SCH (10:52)
[2022-07-03] MEDS: Z GUARD REMEDY 4 OZ OINT TP SCH (11:47)
--- NOTE | 2022-07-03 16:40 | NUR ---
GENERAL ACCOUNTANT NOTES PATIENT IS WITH ORDER FOR DISCHARGE TO [facility] , ALL DISCHARGE PAPERS WERE PREPARED AND PLACEMENT GOING TO [facility] , ALL DUE MEDS GIVEN AND LEG WOUND CARE DRESSING DONE , REPORT GIVEN TO [facility] IN [facility] AND PATIENT WILL BE RECRUIT INSTRUCTOR BY AMBULANCE , 1630 EMT AMBULANCE CAME AND REPORT GIVEN TO AMBULANCE PERSONEL , PATIENT WITH NO SOB , NO DISTRESS OR ANY C/O OF PAIN AND DISCOMFORT , A/O X2 AND WITH CONFUSION , IV ACCESS WAS REMOVED , ALL BELONGINGS WERE SENT TO THE EMT AMBULANCE , MONA MADE AWARE ABOUT THE TRANSFER AND APPRECIATE THE INFORMATION GIVEN . HOME MEDS WAS SENT ALSO TO AMBULANCE CREW AND TO ENDORSE TO STAFF AT [facility] . PATIENT LEFT AROUND 1635 VIA GURNEY .
== END 2022-07-03 16:45 | DRG 570 ==
LOC: ER 15:36 → TRANSITION 23:07 → MED 06-26 07:46
PROVIDERS: ADMIT Nurse Practitioner Acute Care; ATTEND Nurse Practitioner Acute Care
PROC: 0JBP0ZZ Excision of Left Lower Leg Subcutaneous Tissue and Fascia, Open Approach (ICD-10-PCS; principal; 2022-06-26)
PROC: 0JBP3ZZ Excision of Left Lower Leg Subcutaneous Tissue and Fascia, Percutaneous Approach (ICD-10-PCS; 2022-07-03)
DX: L03.116 Cellulitis of left lower limb (principal); N17.0 Acute kidney failure with tubular necrosis; N39.0 Urinary tract infection, site not specified; L97.929 Non-pressure chronic ulcer of unspecified part of left lower leg with unspecified severity; E87.0 Hyperosmolality and hypernatremia; E44.0 Moderate protein-calorie malnutrition; Z68.1 Body mass index [BMI] 19.9 or less, adult; L03.115 Cellulitis of right lower limb; E83.51 Hypocalcemia; I10 Essential (primary) hypertension; F41.9 Anxiety disorder, unspecified; I87.2 Venous insufficiency (chronic) (peripheral); Z90.710 Acquired absence of both cervix and uterus; F32.A Depression, unspecified; Z79.899 Other long term (current) drug therapy; I89.0 Lymphedema, not elsewhere classified; E66.01 Morbid (severe) obesity due to excess calories; E88.09 Other disorders of plasma-protein metabolism, not elsewhere classified; B96.89 Other specified bacterial agents as the cause of diseases classified elsewhere; F20.9 Schizophrenia, unspecified; E83.42 Hypomagnesemia; M62.50 Muscle wasting and atrophy, not elsewhere classified, unspecified site
CPT/HCPCS: 36415; 71045-TC; 73590-TC; 80048-TC; 80061-TC; 80076-TC; 80202-TC; 81001; 83605-TC; 83735-TC; 84100-TC; 84484-TC; 85025-TC; 85730-TC; 87040-TC; 87070-TC; 87081-TC; 87086-TC; 93970-TC; 97116-TC; 97530-TC; A6403; C9803; G0378; J0692; J0696; J1630; J1650; J2405; J3370; J7030; J7060

== ENCOUNTER 2022-07-16 13:40 | Inpatient (IN) | payer BC ==
[~2022-07-16] VITALS: Ht 160 cm; Wt 51.7 kg
[~2022-07-16 13:40] MED LIST: ATOR10TA PO; BREX1TAB PO; CELE100C98 PO; CLOT15CR35 TP; COLL30OI TP; DIVA125T32 PO; DONE10TA44 PO; DOXY100T2 PO; ENOX30DI SQ; FURO20TA4 PO; LACT-54 PO; OMEG-167 PO; Prosource PO
--- NOTE | 2022-07-16 13:46 | NUR ---
bibra78 from [facility] for weakness and hypotension. sent by pmd to r/o sepsis. to er bed 11. attached to monitor.
[2022-07-16] MEDS ORDERED: IV NS 0.9% 1,000 ML BAG IV ONE ×2 (14:00→16:30)
--- NOTE | 2022-07-16 14:08 | NUR ---
futures trader at bedside for xray
--- NOTE | 2022-07-16 14:20 | NUR ---
iv line established on lac #20, blood drawn and sent to lab. covid swab collected and sent to lab
--- NOTE | 2022-07-16 14:28 | NUR ---
DR CUI AT BEDSIDE FOR EVAL
[2022-07-16 14:31] LABS: BASOPHILS % (AUTO) 0.1 % (0.0-2.0); HEMATOCRIT 36 % (33-45); HEMOGLOBIN 11.6 g/dL (11.5-14.8); LYMPHOCYTES # (AUTO) 1.3 K/uL (0.8-4.8); LYMPHOCYTES % (AUTO) 4.3 % (20.0-44.0); MEAN CORPUSCULAR HGB CONC 32 g/dl (31.0-36.0); MEAN CORPUSCULAR VOLUME 92 fL (82-100); MONOCYTES # (AUTO) 1.8 K/uL (0.1-1.30); MONOCYTES % (AUTO) 5.7 % (2.0-12.0); NEUTROPHILS % (AUTO) 89.9 % (43.0-81.0); PLATELET COUNT (AUTO) 198 K/uL (150-450); RED BLOOD CELL COUNT(AUTO) 3.96 MIL/uL (4.0-5.2)
[2022-07-16 14:52] LABS: WHITE BLOOD COUNT (AUTO) 31.1 K/uL (4.3-11.0)
[2022-07-16] MEDS ORDERED: PIPERACILLIN /TAZOBACTAM 3.375 G in IV D5W 50 ML IV ONE (15:00)
[2022-07-16] MEDS ORDERED: VANCOMYCIN 1 GM in IV D5W 250 ML IV ONE (15:00)
[2022-07-16] MEDS ORDERED: ACET-868 PO ×2 (15:45→15:51)
[2022-07-16] MEDS ORDERED: ASCO-352 PO (15:45)
[2022-07-16] MEDS ORDERED: CRAN425C6 PO (15:45)
[2022-07-16] MEDS ORDERED: DOCU-141 PO (15:45)
[2022-07-16] MEDS ORDERED: BISA10SU11 RC (15:51)
[2022-07-16] MEDS ORDERED: ENOX30DI SQ (15:51)
[2022-07-16] MEDS ORDERED: ZINC1CAP3 PO (15:51)
[2022-07-16] MEDS ORDERED: MULT-447 PO (15:51)
[2022-07-16] MEDS ORDERED: AMIN30LI2 PO (15:51)
[2022-07-16] MEDS ORDERED: NA P133E RC (15:51)
[2022-07-16] MEDS ORDERED: MAGN400O6 PO (15:51)
[2022-07-16 15:57] LABS: ALANINE AMINOTRANSFERASE 25 U/L (12-78); ALBUMIN 2.8 g/dL (3.4-5.0); ALKALINE PHOSPHATASE 76 U/L (46-116); ASPARTATE AMINOTRANSFERASE 17 U/L (15-37); BILIRUBIN,DIRECT 0.2 mg/dL (0.0-0.2); BILIRUBIN,TOTAL 0.7 mg/dL (0.2-1.0); CALCIUM, SERUM 8.9 mg/dL (8.5-10.1); CARBON DIOXIDE 25 mmol/L (21-32); CHLORIDE 104 mmol/L (98-107); GLUCOSE 107 mg/dL (74-106); POTASSIUM 4.5 mmol/L (3.5-5.1); SODIUM SERUM 140 mmol/L (136-145); TOTAL PROTEIN, SERUM 6.9 g/dL (6.4-8.2); UREA NITROGEN, BLOOD 30 mg/dL (7-18)
--- NOTE | 2022-07-16 16:09 | NUR ---
urine sample collected and sent to lab
[2022-07-16] MEDS ORDERED: NA PHOS,M-B/NA PHOS,DI-BA 1 EA ENEMA RC PRN (16:30)
[2022-07-16] MEDS ORDERED: ONDANSETRON HCL/PF 4 MG/2 ML VIAL IVP PRN (16:30)
[2022-07-16] MEDS ORDERED: MAGNESIUM HYDROXIDE 30 ML UDC PO PRN ×2 (16:30)
[2022-07-16] MEDS ORDERED: MAG HYDROX/AL HYDROX/SIMETH 30 ML UDC PO PRN (16:30)
[2022-07-16] MEDS ORDERED: ZOLPIDEM TARTRATE 5 MG TABLET PO PRN (16:30)
[2022-07-16] MEDS ORDERED: ACETAMINOPHEN 325 MG TABLET PO PRN ×2 (16:30)
[2022-07-16] MEDS ORDERED: BISACODYL SUPP (10 MG) 10 MG/SUPP.RECT SUPP.RECT RC PRN (16:30)
[2022-07-16] MEDS ORDERED: Medication Not On Formulary EA (Cranberry Extract (Cranberry) 425 MG) PO SCH (17:00)
[2022-07-16] MEDS: DIVALPROEX SODIUM 125 MG TABLET.DR PO SCH (17:00)
--- NOTE | 2022-07-16 17:12 | NUR ---
room assigned 306.1
[2022-07-16 17:23] LABS: COLOR,URINE YELLOW (YELLOW)
[2022-07-16 17:26] LABS: LEUKOCYTE ESTERASE ,URINE LARGE (NEGATIVE); NITRITE, URINE POSITIVE (NEGATIVE)
[2022-07-16 17:27] LABS: BILIRUBIN,URINE NEGATIVE (NEGATIVE); PROTEIN,URINE 3+ mg/dl (NEGATIVE); UGLUCOSE NEGATIVE (NEGATIVE); UROBILINOGEN,URINE 0.2 EU/dL (0.2)
[2022-07-16 17:28] LABS: BACTERIA,URINE 3+ /HPF (None Seen); RBC,URINE 51-80 /HPF (0-2); SQUAMOUS EPITHELIAL CELL,UR 0-2 /HPF (None Seen); WBC,URINE 81-100 /HPF (0-3)
[2022-07-16] MEDS: PROSOURCE / PROSTAT (PYXIS) 30 ML UDC PO SCH (17:36)
--- NOTE | 2022-07-16 17:36 | NUR ---
PT REPORT GIVEN TO KENISHA BENNETT
[2022-07-16 17:41] LABS: BAND % (MANUAL) 8 % (0.0-5.0); MONOCYTES % (MANUAL) 7 % (0-11.0); NEUTROPHILS % (MANUAL) 85 (42-76)
[2022-07-16] MEDS ORDERED: PIPERACILLIN /TAZOBACTAM 3.375 G in IV D5W 50 ML IV SCH (18:00)
[2022-07-16] MEDS: MULTIVIT W/MINERALS 1 TAB TABLET PO SCH (18:00)
[2022-07-16] MEDS: ASCORBIC ACID 500 MG TABLET PO SCH (18:00)
--- NOTE | 2022-07-16 18:19 | NUR ---
PT TRANSFERRED TO 306-1 VIA DEBI CEVALLOS PROTOCOL. WARM HANDOFF GIVEN TO RN ASSIGNED
--- NOTE | 2022-07-16 18:34 | NUR ---
RN NOTE RECEIVED PATIENT FROM E.R. @1820, TRANSPORTED VIA GURNEY, ACCOMPANIED BY ER STAFF: KENISHA ARMENTA AND KENISHA TORRES. TRANSFERRED PATIENT TO BED WITH 3 PERSON ASSIST. VITAL SIGNS TAKEN, STABLE. PATIENT ON ROOM AIR, SPO2 @ 99%. NO SOB NOTED, BREATHING EVEN AND UNLABORED. NOTED WITH IV ACCESS ON LEFT FOREARM #20G, AND RIGHT FOREARM #20G, INTACT AND PATENT. PLACED PATIENT ON SENIOR SYSTEMS ENGINEER, CURRENTLY SHOWING SINUS RHYTHM, HR @ 65. KEPT PATIENT COMFORTABLE . WILL ENDORSE TO NEXT SHIFT FOR CONTINUITY OF CARE.
[2022-07-16] MEDS: IV NS 0.9% 1,000 ML IV PRN (18:56)
--- NOTE | 2022-07-16 19:25 | NUR ---
DIRECTOR PHARMACY SERVICES OPENING NOTES: RECEIVED PATIENT IN BED, AWAKE, A/O X4. NO S/S OF DISTRESS NOTED. NO COMPLAIN OF PAIN. CALL LIGHT WITHIN REACH. BED ALARM ON. BED IN LOWEST AND LOCKED POSITION. ON SINUS TINY WITH PAC 56. Addendum: 07/16/22 at 2240 by BRANDIN GODFREY RN A/O X2,with periods of confusion.
[2022-07-16 20:00] VITALS: BP 127/55
[2022-07-16] MEDS: ATORVASTATIN 10 MG TABLET PO SCH (22:00)
[2022-07-16] MEDS: ZOSYN IVPB 2.25 G in IV D5W 50ml IV SCH (22:23)
[2022-07-17] VITALS: BP 113/48
[2022-07-17] MEDS: IV NS 0.9% 1,000 ML IV PRN (03:40)
[2022-07-17] MEDS: ZOSYN IVPB 2.25 G in IV D5W 50ml IV SCH ×5 (03:41→17:46)
[2022-07-17 04:00] VITALS: BP 115/53
[2022-07-17 06:57] LABS: BASOPHILS % (AUTO) 0.2 % (0.0-2.0); HEMATOCRIT 30 % (33-45); HEMOGLOBIN 9.6 g/dL (11.5-14.8); LYMPHOCYTES # (AUTO) 1.8 K/uL (0.8-4.8); LYMPHOCYTES % (AUTO) 10.6 % (20.0-44.0); MEAN CORPUSCULAR HGB CONC 32 g/dl (31.0-36.0); MEAN CORPUSCULAR VOLUME 92 fL (82-100); MONOCYTES % (AUTO) 6.2 % (2.0-12.0); NEUTROPHILS # (AUTO) 13.1 K/uL (1.8-8.9); PLATELET COUNT (AUTO) 168 K/uL (150-450); RED BLOOD CELL COUNT(AUTO) 3.24 MIL/uL (4.0-5.2); WHITE BLOOD COUNT (AUTO) 16.6 K/uL (4.3-11.0)
[2022-07-17 07:09] LABS: CALCIUM, SERUM 8.3 mg/dL (8.5-10.1); CARBON DIOXIDE 26 mmol/L (21-32); CHLORIDE 110 mmol/L (98-107); CREATININE 1.5 mg/dL (0.6-1.3); GLUCOSE 84 mg/dL (74-106); MAGNESIUM 1.8 mg/dL (1.8-2.4); PHOSPHORUS 3.6 mg/dL (2.5-4.9); POTASSIUM 3.7 mmol/L (3.5-5.1); SODIUM SERUM 142 mmol/L (136-145); UREA NITROGEN, BLOOD 23 mg/dL (7-18)
[2022-07-17 08:00] VITALS: BP 119/64
[2022-07-17] MEDS ORDERED: BREXPIPRAZOLE 1 MG PO SCH (09:00)
--- NOTE | 2022-07-17 09:29 | NUR ---
WOUND CARE CONSULT: PT PRESENTS WITH SACRAL INTACT DEEP TISSUE INJURY, RASHES TO BREASTFOLDS AND LOWER BUTTOCKS/PERINEUM AND DRY SCAB TO LEFT LOWER LEG, ALL PRESENT ON ADMISSION. RECOMMENDATIONS MADE FOR SKIN PROTECTION. DISCUSSED WITH NURSING STAFF. DR ORTEZ CALLED FOR SURGICAL CONSULT. MD IN AGREEMENT WITH PLAN OF CARE.
[2022-07-17] MEDS: PROSOURCE / PROSTAT (PYXIS) 30 ML UDC PO SCH ×2 (09:54→17:46)
[2022-07-17] MEDS: DIVALPROEX SODIUM 125 MG TABLET.DR PO SCH ×2 (09:56→17:45)
[2022-07-17] MEDS: DOCUSATE SODIUM 100 MG CAPSULE PO SCH (09:56)
[2022-07-17] MEDS: ACETAMINOPHEN 325 MG TABLET PO SCH (09:57)
[2022-07-17] MEDS: DONEPEZIL 5 MG TABLET PO SCH (09:57)
[2022-07-17] MEDS ORDERED: VANCOMYCIN 0.75 GM in IV D5W 250 ML IV SCH (15:00)
[2022-07-17 16:00] VITALS: BP 107/59
[2022-07-17] MEDS: CLOTRIMAZOLE 1% 15 GM TUBE TP SCH (17:00)
[2022-07-17] MEDS: ASCORBIC ACID 500 MG TABLET PO SCH (17:45)
[2022-07-17] MEDS: MULTIVIT W/MINERALS 1 TAB TABLET PO SCH (17:45)
[2022-07-17] MEDS: ENSURE ENLIVE CHOC 237 ML CAN PO SCH (18:36)
--- NOTE | 2022-07-17 19:40 | NUR ---
TELERN AWAKE, NO SOB, ON RA SR TO SB ON THE MONITOR. PRESENT IVF NS AT 120 CC/HR INFUSING WELL. NO NEEDS AT THIS TIME. POSITIONED FOR COMFORT. VIRGEN TO GRAVITY CLEAR YELLOW OUTPUT, MONITORED. TO CONTINUE.
[2022-07-17 20:00] VITALS: BP 129/66
[2022-07-17 20:08] VITALS: BP 129/66
[2022-07-17] MEDS: ATORVASTATIN 10 MG TABLET PO SCH (21:43)
--- NOTE | 2022-07-17 23:06 | NUR ---
TELERN REMAINS SR TO SB ON THE MONITOR. COOPERATIVE TOOK MEDS WITH PUDDING, ASSISTED. FINISHED WHOLE PUDDING.KEPT COMFORTABLE. IVF INFUSING WELL.
[2022-07-18] VITALS (8 sets, daily range): BP systolic 119–146; BP diastolic 58–87
[2022-07-18] MEDS: ZOSYN IVPB 2.25 G in IV D5W 50ml IV SCH ×5 (00:14→23:03)
[2022-07-18] MEDS: IV NS 0.9% 1,000 ML IV PRN ×2 (03:44→14:56)
--- NOTE | 2022-07-18 06:58 | NUR ---
TELERN REMAINS UNCHANGED, NO NEEDS MADE OF THIS TIME.
--- NOTE | 2022-07-18 07:30 | NUR ---
LENS FABRICATING MACHINE TENDER NOTE RECEIVED PATIENT AWAKE IN BED. NO PAIN NOTED. NO DISTRESS NOTED. STABLE. PATIENT ON ROOM AIR, SPO2 @ 98%. NO SOB NOTED, BREATHING EVEN AND UNLABORED. NOTED WITH IV ACCESS ON RIGHT FOREARM #20G, INTACT AND PATENT RUNNING NS AT 120 ML/HR. ON TELE MONITOR READING SINUS RHYTHM, HR @ 55. ALL SAFETY MEASURES IN PLACE.KEPT PATIENT COMFORTABLE . HOB ELEVATED FOR ASPIRATION PRECAUTION. SIDE RAILS UP TIMES 2. BED LOCKED IN THE LOWEST POSITION. CALL LIGHT AND TABLE IN EASY REACH.WILL CONTINUE TO MONITOR.
[2022-07-18 07:34] LABS: BASOPHILS # (AUTO) 0.1 K/uL (0.0-0.2); BASOPHILS % (AUTO) 0.6 % (0.0-2.0); EOSINOPHILS % (AUTO) 11.3 % (0.0-6.0); HEMATOCRIT 30 % (33-45); HEMOGLOBIN 9.7 g/dL (11.5-14.8); LYMPHOCYTES # (AUTO) 1.9 K/uL (0.8-4.8); LYMPHOCYTES % (AUTO) 15.3 % (20.0-44.0); MEAN CORPUSCULAR HGB CONC 32 g/dl (31.0-36.0); MEAN CORPUSCULAR VOLUME 93 fL (82-100); MONOCYTES # (AUTO) 0.9 K/uL (0.1-1.30); MONOCYTES % (AUTO) 7.1 % (2.0-12.0); NEUTROPHILS # (AUTO) 8.2 K/uL (1.8-8.9); NEUTROPHILS % (AUTO) 65.7 % (43.0-81.0); PLATELET COUNT (AUTO) 172 K/uL (150-450); RED BLOOD CELL COUNT(AUTO) 3.26 MIL/uL (4.0-5.2); WHITE BLOOD COUNT (AUTO) 12.4 K/uL (4.3-11.0)
[2022-07-18 07:43] LABS: CALCIUM, SERUM 8.1 mg/dL (8.5-10.1); CARBON DIOXIDE 23 mmol/L (21-32); CHLORIDE 110 mmol/L (98-107); CREATININE 1.3 mg/dL (0.6-1.3); GLUCOSE 94 mg/dL (74-106); MAGNESIUM 1.8 mg/dL (1.8-2.4); PHOSPHORUS 2.9 mg/dL (2.5-4.9); POTASSIUM 3.6 mmol/L (3.5-5.1); SODIUM SERUM 140 mmol/L (136-145); UREA NITROGEN, BLOOD 18 mg/dL (7-18)
[2022-07-18] MEDS: ENSURE ENLIVE CHOC 237 ML CAN PO SCH ×2 (08:07→17:40)
[2022-07-18] MEDS: DIVALPROEX SODIUM 125 MG TABLET.DR PO SCH ×2 (09:14→16:21)
[2022-07-18] MEDS: DOCUSATE SODIUM 100 MG CAPSULE PO SCH (09:14)
[2022-07-18] MEDS: PROSOURCE / PROSTAT (PYXIS) 30 ML UDC PO SCH ×2 (09:14→16:21)
[2022-07-18] MEDS: DONEPEZIL 5 MG TABLET PO SCH (09:14)
[2022-07-18] MEDS: ACETAMINOPHEN 325 MG TABLET PO SCH (09:14)
[2022-07-18] MEDS: CLOTRIMAZOLE 1% 15 GM TUBE TP SCH ×3 (09:15→21:11)
[2022-07-18] MEDS: ASCORBIC ACID 500 MG TABLET PO SCH (17:44)
[2022-07-18] MEDS: MULTIVIT W/MINERALS 1 TAB TABLET PO SCH (17:44)
--- NOTE | 2022-07-18 18:43 | NUR ---
MACHINE CLOTH TRIMMER CLOSING NOTE PATIENT AWAKE IN BED. NO PAIN NOTED. NO DISTRESS NOTED. STABLE. PATIENT ON ROOM AIR, SPO2 @ 97%. NO SOB NOTED, BREATHING EVEN AND UNLABORED. IV ACCESS ON RIGHT AC#20G, INTACT AND PATENT RUNNING NS AT 120 ML/HR. ON TELE MONITOR READING SINUS RHYTHM. ALL DUE MEDS GIVEN ORDERED. ALL SAFETY MEASURES IN PLACE.KEPT PATIENT COMFORTABLE . HOB ELEVATED FOR ASPIRATION PRECAUTION. SIDE RAILS UP TIMES 2. BED LOCKED IN THE LOWEST POSITION. CALL LIGHT AND TABLE IN EASY REACH.WILL ENDORSE FOR THAIS.
--- NOTE | 2022-07-18 19:17 | NUR ---
RN OPENING NOTE PATIENT IN BED, AWAKE. PATIENT IS ABLE A/O X 1-2 AT THIS TIME. ON RA, TOLERATING WELL, NO SOB OR RESPIRATORY DISTRESS NOTED. BREATHING EVEN AND UNLABORED. PATIENT'S TELE MONITOR READS SR [address]PM[address] VIR[address] CATHETER IN PL[address] DRAINING URINE VIA GRAVITY. PATIENT HAS A RAC 20 G WITH NS ONGOING AT 120 ML/HR, INFUSING WELL. SAFETY MEASURES IN PLACE: BED LOCKED AND IN LOWEST POSITION, CALL LIGHT WITHIN REACH, SIDE RAILS UP. WILL MONITOR PATIENT CLOSELY.
[2022-07-18] MEDS: ATORVASTATIN 10 MG TABLET PO SCH (21:10)
[2022-07-19] VITALS (7 sets, daily range): BP systolic 131–167; BP diastolic 63–78
[2022-07-19] MEDS: IV NS 0.9% 1,000 ML IV PRN ×2 (03:30→14:31)
[2022-07-19] MEDS: ZOSYN IVPB 2.25 G in IV D5W 50ml IV SCH ×4 (05:22→23:36)
[2022-07-19 06:04] LABS: BASOPHILS % (AUTO) 0.3 % (0.0-2.0); EOSINOPHILS % (AUTO) 11.5 % (0.0-6.0); HEMATOCRIT 30 % (33-45); HEMOGLOBIN 9.6 g/dL (11.5-14.8); LYMPHOCYTES # (AUTO) 1.6 K/uL (0.8-4.8); LYMPHOCYTES % (AUTO) 14.3 % (20.0-44.0); MEAN CORPUSCULAR HGB CONC 33 g/dl (31.0-36.0); MEAN CORPUSCULAR VOLUME 92 fL (82-100); MONOCYTES # (AUTO) 0.7 K/uL (0.1-1.30); MONOCYTES % (AUTO) 6.4 % (2.0-12.0); NEUTROPHILS # (AUTO) 7.4 K/uL (1.8-8.9); NEUTROPHILS % (AUTO) 67.5 % (43.0-81.0); PLATELET COUNT (AUTO) 178 K/uL (150-450); RED BLOOD CELL COUNT(AUTO) 3.21 MIL/uL (4.0-5.2)
[2022-07-19 06:23] LABS: CALCIUM, SERUM 8.2 mg/dL (8.5-10.1); CREATININE 1.1 mg/dL (0.6-1.3); MAGNESIUM 1.8 mg/dL (1.8-2.4); PHOSPHORUS 2.8 mg/dL (2.5-4.9); POTASSIUM 3.4 mmol/L (3.5-5.1)
--- NOTE | 2022-07-19 06:48 | NUR ---
RN CLOSING NOTE PATIENT IN BED, EYES CLOSED, EASILY AWAKENED. PATIENT IS ABLE A/O X 1-2 AT THIS TIME. ON RA, TOLERATING WELL, NO SOB OR RESPIRATORY DISTRESS NOTED. BREATHING EVEN AND UNLABORED. PATIENT'S TELE MONITOR READS SB [address] BPM. VIRGEN CATHETER IN PLACE DRAINING YELLOW CLEAR URINE VIA GRAVITY. PATIENT HAS A RAC 20 G WITH NS ONGOING AT 120 ML/HR, INFUSING WELL. SAFETY MEASURES IN PLACE: BED LOCKED AND IN LOWEST POSITION, CALL LIGHT WITHIN REACH, SIDE RAILS UP. ALL NEEDS MET AND ATTENDED. ALL ORDERS CARRIED OUT. WILL ENDORSE TO DAY SHIFT NURSE FOR THAIS.
--- NOTE | 2022-07-19 07:35 | NUR ---
LABEL PRINTING MACHINIST OPENING NOTES: PATIENT IN BED, SLEEPING EASILY AWAKENED. PATIENT IS ABLE A/O X 1-2 AT THIS TIME. ON RA, TOLERATING WELL, NO SOB OR RESPIRATORY DISTRESS NOTED. BREATHING EVEN AND UNLABORED. PATIENT'S TELE MONITOR READS SB 56 BPM. VIRGEN CATHETER IN PLACE DRAINING YELLOW CLEAR URINE VIA GRAVITY. IV ACCESS @ RAC #20, RUNNING NS AT 120 ML/HR. SAFETY MEASURES IN PLACE: BED LOCKED AND IN LOWEST POSITION, CALL LIGHT WITHIN REACH, SIDE RAILS UP; WILL CONTINUE PLAN OF CARE DURING SHIFT.
[2022-07-19] MEDS: DONEPEZIL 5 MG TABLET PO SCH (09:46)
[2022-07-19] MEDS: ACETAMINOPHEN 325 MG TABLET PO SCH (09:46)
[2022-07-19] MEDS: DOCUSATE SODIUM 100 MG CAPSULE PO SCH (09:46)
[2022-07-19] MEDS: CLOTRIMAZOLE 1% 15 GM TUBE TP SCH ×4 (09:53→17:18)
[2022-07-19] MEDS: DIVALPROEX SODIUM 125 MG TABLET.DR PO SCH ×2 (09:53→17:09)
[2022-07-19] MEDS: ENSURE ENLIVE CHOC 237 ML CAN PO SCH ×2 (09:54→17:12)
[2022-07-19] MEDS: Z GUARD REMEDY 4 OZ OINT TP PRN (09:54)
[2022-07-19] MEDS ORDERED: POTASSIUM CHLORIDE 20 MEQ TAB.PRT.SR PO SCH (10:00)
[2022-07-19] MEDS: PROSOURCE / PROSTAT (PYXIS) 30 ML UDC PO SCH ×2 (12:41→17:12)
[2022-07-19] MEDS: ASCORBIC ACID 500 MG TABLET PO SCH (17:09)
[2022-07-19] MEDS: MULTIVIT W/MINERALS 1 TAB TABLET PO SCH (17:09)
--- NOTE | 2022-07-19 18:43 | NUR ---
PACKING LINE WORKER CLOSING NOTES: PATIENT IN BED, SLEEPING BUT EASILY AWAKENED. PATIENT IS A/O X 1-2. ON RA, TOLERATING WELL, NO SOB OR RESPIRATORY DISTRESS NOTED. BREATHING EVEN AND UNLABORED. PATIENT'S TELE MONITOR READS SB 57 BPM. VIRGEN CATHETER IN PLACE DRAINING YELLOW CLEAR URINE VIA GRAVITY. IV ACCESS @ RAC #20, RUNNING NS AT 120 ML/HR. KEPT PT CLEAN DRY AND COMFORTABLE, SCHEDULED MEDS GIVEN. SAFETY MEASURES IN PLACE: BED LOCKED AND IN LOWEST POSITION, CALL LIGHT WITHIN REACH, SIDE RAILS UPX2 ; WILL ENDORSE TO PM SHIFT.
--- NOTE | 2022-07-19 19:20 | NUR ---
RN OPENING NOTE PATIENT IN BED, AWAKE. PATIENT IS ABLE A/O X 1-2 AT THIS TIME. ON RA, TOLERATING WELL, NO SOB OR RESPIRATORY DISTRESS NOTED. BREATHING EVEN AND UNLABORED. PATIENT'S TELE MONITOR READS SR 60 BPM. VIRGEN CATHETER IN PLACE DRAINING CLEAR YELLOW URINE VIA GRAVITY. PATIENT HAS A RAC 20 G WITH NS ONGOING AT 120 ML/HR, INFUSING WELL. SAFETY MEASURES IN PLACE: BED LOCKED AND IN LOWEST POSITION, CALL LIGHT WITHIN REACH, SIDE RAILS UP. WILL MONITOR PATIENT CLOSELY.
[2022-07-19] MEDS: ATORVASTATIN 10 MG TABLET PO SCH (21:42)
[2022-07-20] VITALS (9 sets, daily range): BP systolic 136–168; BP diastolic 60–82
[2022-07-20] MEDS: IV NS 0.9% 1,000 ML IV PRN ×3 (02:43→18:14)
[2022-07-20] MEDS: ZOSYN IVPB 2.25 G in IV D5W 50ml IV SCH ×3 (05:10→18:49)
[2022-07-20 05:57] LABS: BASOPHILS % (AUTO) 0.3 % (0.0-2.0); HEMATOCRIT 28 % (33-45); HEMOGLOBIN 9.1 g/dL (11.5-14.8); LYMPHOCYTES # (AUTO) 2.1 K/uL (0.8-4.8); LYMPHOCYTES % (AUTO) 18.3 % (20.0-44.0); MEAN CORPUSCULAR HGB CONC 33 g/dl (31.0-36.0); MEAN CORPUSCULAR VOLUME 91 fL (82-100); MONOCYTES % (AUTO) 8.8 % (2.0-12.0); NEUTROPHILS # (AUTO) 6.5 K/uL (1.8-8.9); NEUTROPHILS % (AUTO) 57.6 % (43.0-81.0); PLATELET COUNT (AUTO) 189 K/uL (150-450); RED BLOOD CELL COUNT(AUTO) 3.01 MIL/uL (4.0-5.2); WHITE BLOOD COUNT (AUTO) 11.2 K/uL (4.3-11.0)
[2022-07-20 06:30] LABS: CALCIUM, SERUM 8.1 mg/dL (8.5-10.1); CREATININE 1.2 mg/dL (0.6-1.3); MAGNESIUM 1.8 mg/dL (1.8-2.4); PHOSPHORUS 2.7 mg/dL (2.5-4.9); POTASSIUM 3.7 mmol/L (3.5-5.1)
--- NOTE | 2022-07-20 07:16 | NUR ---
RN CLOSING NOTE PATIENT IN BED, EYES CLOSED, EASILY AWAKENED. PATIENT IS ABLE A/O X 1-2 AT THIS TIME. ON RA, TOLERATING WELL, NO SOB OR RESPIRATORY DISTRESS NOTED. BREATHING EVEN AND UNLABORED. PATIENT'S TELE MONITOR READS SB 59 BPM. VIRGEN CATHETER IN PLACE DRAINING YELLOW CLEAR URINE VIA GRAVITY. PATIENT HAS A RAC 20 G WITH NS ONGOING AT 120 ML/HR, INFUSING WELL. SAFETY MEASURES IN PLACE: BED LOCKED AND IN LOWEST POSITION, CALL LIGHT WITHIN REACH, SIDE RAILS UP. ALL NEEDS MET AND ATTENDED. ALL ORDERS CARRIED OUT. WILL ENDORSE TO DAY SHIFT NURSE FOR THAIS.
--- NOTE | 2022-07-20 07:29 | NUR ---
LINE SERVICER OPENING NOTES: PATIENT IN BED, SLEEPING EASILY AWAKENED. PATIENT IS ABLE A/O X 1-2 AT THIS TIME. ON RA, TOLERATING WELL, NO SOB OR RESPIRATORY DISTRESS NOTED. BREATHING EVEN AND UNLABORED. PATIENT'S TELE MONITOR READS SR [address] BPM. VIRGEN CATHETER IN PL[address] DRAINING YELLOW CLEAR URINE VIA GRAVITY. IV ACCESS @ RAC #20, RUNNING NS AT 120 ML/HR. SAFETY MEASURES IN PLACE: BED LOCKED AND IN LOWEST POSITION, CALL LIGHT WITHIN REACH, SIDE RAILS UP; WILL CONTINUE PLAN OF CARE DURING SHIFT.
[2022-07-20] MEDS: ENSURE ENLIVE CHOC 237 ML CAN PO SCH ×2 (08:14→18:15)
[2022-07-20] MEDS: ACETAMINOPHEN 325 MG TABLET PO SCH (08:15)
[2022-07-20] MEDS: DOCUSATE SODIUM 100 MG CAPSULE PO SCH (08:16)
[2022-07-20] MEDS: DIVALPROEX SODIUM 125 MG TABLET.DR PO SCH ×2 (08:16→16:57)
[2022-07-20] MEDS: DONEPEZIL 5 MG TABLET PO SCH (08:16)
[2022-07-20] MEDS: CLOTRIMAZOLE 1% 15 GM TUBE TP SCH ×4 (08:16→18:16)
[2022-07-20] MEDS: PROSOURCE / PROSTAT (PYXIS) 30 ML UDC PO SCH ×2 (08:18→17:00)
[2022-07-20] MEDS: MULTIVIT W/MINERALS 1 TAB TABLET PO SCH (18:15)
[2022-07-20] MEDS: ASCORBIC ACID 500 MG TABLET PO SCH (18:15)
--- NOTE | 2022-07-20 19:35 | NUR ---
TELERN RECEIVED AWAKE ON BED, NO DISCOMFORTS OF THIS TIME. PRESENT IVF INFUSING WELL SR ON THE MONITOR. VIRGEN TO GAVITY OUTPUT FAIR. NO NEEDS FORNOW, CONTINUED MONITORING.
--- NOTE | 2022-07-20 19:36 | NUR ---
FLIGHT AGENT CLOSING NOTES: PATIENT IN BED, SLEEPING BUT EASILY AWAKENED. PATIENT IS A/O X 1-2. ON RA, TOLERATING WELL, NO SOB OR RESPIRATORY DISTRESS NOTED. BREATHING EVEN AND UNLABORED. PATIENT'S TELE MONITOR READS SR 62 BPM. VIRGEN CATHETER IN PLACE DRAINING YELLOW CLEAR URINE VIA GRAVITY. IV ACCESS @ L H #24 RUNNING NS AT 120 ML/HR. KEPT PT CLEAN DRY AND COMFORTABLE, SCHEDULED MEDS GIVEN. SAFETY MEASURES IN PLACE: BED LOCKED AND IN LOWEST POSITION, CALL LIGHT WITHIN REACH, SIDE RAILS UPX2 ; WILL ENDORSE TO PM SHIFT.
[2022-07-20] MEDS: CLOTRIMAZOLE/BETAMETASONE DIPROPIONATE 15 GM TUBE TP SCH (21:30)
[2022-07-20] MEDS: ATORVASTATIN 10 MG TABLET PO SCH (21:39)
--- NOTE | 2022-07-20 22:00 | NUR ---
TELERN DUE MEDS GIVEN WITH APPLE SAUCE. KEPT COMFORTABLE. CONTINUED MONITORING
--- NOTE | 2022-07-20 23:00 | NUR ---
TELERN ENDORSED TO INCOMING RN FOR CONTINUITY OF CARE
--- NOTE | 2022-07-20 23:00 | NUR ---
INSTRUCTIONAL SPECIALIST NOTES RECEIVED REPORT FROM KENISHA SOTOMAYOR,PATIENT ON BED A/O X1-2,BREATHING REGULAR,NOT IN ANY FORM OF DISTRESS.NEW IV SALINE LOCK PLACE ON RIGHT FOREARM #20 FOR IVF NS INFUSING AT 120ML/HR RATE VIA IV PUMP,NO CHF.WILL CONTINUE TO MONITOR STATS.
[2022-07-21] VITALS: BP 152/75
[2022-07-21] MEDS: ZOSYN IVPB 2.25 G in IV D5W 50ml IV SCH ×4 (00:13→17:39)
[2022-07-21 04:00] VITALS: BP_SYST 159; BP_DIAS 58; BP_DIAS 84
--- NOTE | 2022-07-21 06:24 | NUR ---
STATUE MAKER NOTES NO SIGNIFICANT CHANGE IN STATUS,SLEEP WELL,IVF INFUSING WELL ON RIGHT FOREARM SALINE LOCK,DUE IV ABX ADMINISTERED,NO FALL, NO INJURY,CALL LIGHT IN REACH,NEEDS ATTENDED.
[2022-07-21 06:38] LABS: BASOPHILS % (AUTO) 0.4 % (0.0-2.0); HEMATOCRIT 30 % (33-45); HEMOGLOBIN 10.1 g/dL (11.5-14.8); LYMPHOCYTES # (AUTO) 1.5 K/uL (0.8-4.8); LYMPHOCYTES % (AUTO) 13.8 % (20.0-44.0); MEAN CORPUSCULAR HGB CONC 34 g/dl (31.0-36.0); MEAN CORPUSCULAR VOLUME 91 fL (82-100); MONOCYTES # (AUTO) 0.8 K/uL (0.1-1.30); MONOCYTES % (AUTO) 7.6 % (2.0-12.0); NEUTROPHILS # (AUTO) 6.6 K/uL (1.8-8.9); NEUTROPHILS % (AUTO) 61.2 % (43.0-81.0); PLATELET COUNT (AUTO) 194 K/uL (150-450); RED BLOOD CELL COUNT(AUTO) 3.28 MIL/uL (4.0-5.2); WHITE BLOOD COUNT (AUTO) 10.8 K/uL (4.3-11.0)
[2022-07-21 06:46] LABS: CALCIUM, SERUM 8.2 mg/dL (8.5-10.1); CREATININE 1.1 mg/dL (0.6-1.3); MAGNESIUM 1.8 mg/dL (1.8-2.4); PHOSPHORUS 2.8 mg/dL (2.5-4.9); POTASSIUM 3.5 mmol/L (3.5-5.1)
--- NOTE | 2022-07-21 07:20 | NUR ---
ms rn received on bed, awake,alert,oriented x1-2,not in any form of distress, respirations even and unlabored,no sob noted,sr on monitor, brown to gravity w/ yellowish urine output, all needs attended.
[2022-07-21 08:00] VITALS: BP 150/84
[2022-07-21] MEDS: ENSURE ENLIVE CHOC 237 ML CAN PO SCH ×2 (08:00→17:00)
--- NOTE | 2022-07-21 09:20 | NUR ---
ms shetty breakfast served,due meds given,tolerated well.
[2022-07-21] MEDS: ACETAMINOPHEN 325 MG TABLET PO SCH (09:41)
[2022-07-21] MEDS: DOCUSATE SODIUM 100 MG CAPSULE PO SCH (09:41)
[2022-07-21] MEDS: PROSOURCE / PROSTAT (PYXIS) 30 ML UDC PO SCH ×2 (09:41→17:43)
[2022-07-21] MEDS: DONEPEZIL 5 MG TABLET PO SCH (09:41)
[2022-07-21] MEDS: DIVALPROEX SODIUM 125 MG TABLET.DR PO SCH ×2 (09:42→17:35)
[2022-07-21] MEDS: CLOTRIMAZOLE 1% 15 GM TUBE TP SCH ×2 (11:46→17:36)
[2022-07-21] MEDS: CLOTRIMAZOLE/BETAMETASONE DIPROPIONATE 15 GM TUBE TP SCH ×2 (11:46→17:37)
[2022-07-21 12:00] VITALS: BP 138/65
[2022-07-21] MEDS: IV NS 0.9% 1,000 ML IV PRN (13:12)
[2022-07-21 16:00] VITALS: BP 124/41
[2022-07-21] MEDS: MULTIVIT W/MINERALS 1 TAB TABLET PO SCH (17:35)
[2022-07-21] MEDS: ASCORBIC ACID 500 MG TABLET PO SCH (17:35)
--- NOTE | 2022-07-21 17:49 | NUR ---
ms rn on bed, no distress noted, discharge held per classification case manager.
--- NOTE | 2022-07-21 19:30 | NUR ---
EPIC CUPID SPECIALISTS OPENING NOTE RECEIVED PATIENT IN BED; AWAKE, ALERT AND ORIENTED X 1-2. BREATHING EVEN AND UNLABORED. ON ROOM AIR; TOLERATING WELL. NOT IN ANY FORM OF RESPIRATORY DISTRESS. NO S/SX OF PAIN OR DISCOMFORT NOTED AT THIS TIME. ON TELEMETRY MONITORING WITH READING OF SR HR-62 BPM WITH PAC. WITH IV ACCESS ON RIGHT FOREARM 2Og: PATENT AND INTACT INFUSING WITH NS 1L RUNNING @ 120 ML/HR; FLUSHES WELL. NO INFILTRATION NOTED. WITH VIRGEN CATHETER IN PLACE DRAINING VIA GRAVITY TO CLEAR YELLOW URINE OUTPUT. NEEDS ANTICIPATED. SAFETY MEASURES IMPLEMENTED: CALL LIGHT AND TABLE WITHIN REACH, SIDE RAILS UP X 2, BED IN LOWEST LOCKED POSITION. WILL CONTINUE TO MONITOR.
[2022-07-21 20:00] VITALS: BP 137/74
[2022-07-21] MEDS: ATORVASTATIN 10 MG TABLET PO SCH (22:01)
[2022-07-22] VITALS: BP 149/83
[2022-07-22] MEDS: ZOSYN IVPB 2.25 G in IV D5W 50ml IV SCH ×4 (00:07→18:15)
[2022-07-22 04:00] VITALS: BP 155/89
[2022-07-22] MEDS: IV NS 0.9% 1,000 ML IV PRN ×2 (05:42→15:54)
--- NOTE | 2022-07-22 06:45 | NUR ---
LABORATORY TECHNICAL SPECIALIST CLOSING NOTE PATIENT IN BED; AWAKE, A/O X 1-2. STABLE ON ROOM AIR. RESPIRATION EQUAL AND UNLABORED. IN NO ACUTE DISTRESS. NO S/SX OF PAIN OR DISCOMFORT NOTED. ON TELE MONITORING WITH READING OF SR HR-62 BPM. WITH IV ACCESS ON RIGHT FOREARM 2Og: PATENT AND INTACT INFUSING WITH NS 1L RUNNING @ 120 ML/HR; FLUSHES WELL. NO INFILTRATION NOTED. WITH VIRGEN CATH IN PLACE DRAINING VIA GRAVITY TO CLEAR YELLOW URINE OUTPUT. ALL NEEDS ATTENDED. SAFETY MEASURES MAINTAINED: CALL LIGHT AND TABLE WITHIN REACH, SIDE RAILS UP X 2, BED IN LOWEST LOCKED POSITION. ENDORSED TO MORNING SHIFT FOR THAIS.
--- NOTE | 2022-07-22 07:27 | NUR ---
JAVA WEB USER INTERFACE DEVELOPER OPENING NOTES RECEIVED PATIENT AWAKE IN BED IN NO ACUTE SIGN SOF DISTRESS. HOB ELEVATED. A/O X1-2 VERBALLY RESPONSIVE AND FORGETFUL. DENIES PAIN OR DISCOMFORTS AT THIS TIME. ON ROOM AIR, TOLERATING WELL. BREATHING EVEN AND UN-LABORED. CURRENT TELE-MONITOR READS NSR , HR 84, NO C/O CARDIAC DISTRESS VOICED AT THIS TIME. RFA IV ACCESS #20G INTACT WITH IVF OF NS @ 120 ML/HR INFUSING WELL, S/S OF INFILTRATION NOTED. VIRGEN CATHETER IN PLACE DRAINING CLEAR YELLOW YELLOW URINE TO COLLECTING URINARY BAG BY GRAVITY. SAFETY PRECAUTIONS IN PLACE: BED LOCKED AND IN LOWEST POSITION, SIDE RAILS UP X2, BED ALARM ON AND CALL LIGHT WITHIN EASY REACH. WILL CONTINUE POC.
[2022-07-22 08:00] VITALS: BP 167/78
[2022-07-22] MEDS: ENSURE ENLIVE CHOC 237 ML CAN PO SCH ×2 (08:00→17:09)
[2022-07-22] MEDS: ACETAMINOPHEN 325 MG TABLET PO SCH (08:09)
[2022-07-22] MEDS: DIVALPROEX SODIUM 125 MG TABLET.DR PO SCH ×2 (08:10→17:09)
[2022-07-22] MEDS: DONEPEZIL 5 MG TABLET PO SCH (08:10)
[2022-07-22] MEDS: DOCUSATE SODIUM 100 MG CAPSULE PO SCH (08:10)
[2022-07-22] MEDS: PROSOURCE / PROSTAT (PYXIS) 30 ML UDC PO SCH ×2 (08:10→17:09)
[2022-07-22] MEDS: CLOTRIMAZOLE 1% 15 GM TUBE TP SCH ×2 (08:13→17:10)
[2022-07-22] MEDS: Z GUARD REMEDY 4 OZ OINT TP PRN (08:14)
[2022-07-22] MEDS: CLOTRIMAZOLE/BETAMETASONE DIPROPIONATE 15 GM TUBE TP SCH ×2 (09:21→17:10)
--- NOTE | 2022-07-22 09:52 | NUR ---
RN NOTES PT NOTED WITH HIGH BP OF 167/78, DR ZAYAS MADE AWARE WITH ORDER TO ADMINISTER HYDRALAZINE 25MG PO Q6HRS AND PRN FOR SBP >160MMHG.
[2022-07-22] MEDS ORDERED: hydrALAZINE HCL 25 MG TABLET PO PRN (10:00)
[2022-07-22 16:00] VITALS: BP 138/88
[2022-07-22] MEDS: ASCORBIC ACID 500 MG TABLET PO SCH (17:08)
[2022-07-22] MEDS: MULTIVIT W/MINERALS 1 TAB TABLET PO SCH (17:09)
--- NOTE | 2022-07-22 18:42 | NUR ---
MS RN CLOSING NOTES PATIENT IN BED AWAKE AT THIS TIME AND LYING AT MODERATE HIGH BACKREST POSITION. A/O X1-2 TO NAME AND PERSON. VERBALLY RESPONSIVE AND FORGETFUL. ON ROOM AIR, TOLERATING WELL, BREATHING EVEN AND UN-LABORED. RFA IV ACCESS #20G INTACT WITH IVF OF NS @ 120 ML/HR INFUSING WELL, NO S/S OF INFILTRATION NOTED AT SITE. VIRGEN CATHETER IN PLACE DRAINING CLEAR YELLOW YELLOW URINE TO BEDSIDE URINARY BAG BY GRAVITY, VIRGEN CARE DONE. PT TURNED AND REPOSITIONED FROM SIDE TO SIDE Q 2HRS AND PRN. ALL NEEDS AND CARE PROVIDED WELL. SAFETY PRECAUTIONS MAINTAINED: BED LOCKED AND IN LOWEST POSITION, SIDE RAILS UP X2, BED ALARM ON AND CALL LIGHT WITHIN EASY REACH. WILL ENDORSE THAIS TO GROCERY STORE ASSOCIATE NURSE.
--- NOTE | 2022-07-22 19:30 | NUR ---
MS RN OPENING NOTE RECEIVED PATIENT IN BED; AWAKE, ALERT AND ORIENTED X 1-2. BREATHING EQUAL AND NONLABORED. ON ROOM AIR; TOLERATING WELL. NOT IN ANY FORM OF RESPIRATORY DISTRESS. NO S/SX OF PAIN OR DISCOMFORT NOTED AT THIS TIME. WITH IV ACCESS ON RIGHT FOREARM 2Og: PATENT AND INTACT INFUSING WITH NS 1L RUNNING @ 120 ML/HR; FLUSHES WELL. NO INFILTRATION NOTED. WITH VIRGEN CATHETER IN PLACE DRAINING VIA GRAVITY TO CLEAR YELLOW URINE OUTPUT. NEEDS ANTICIPATED. SAFETY MEASURES IMPLEMENTED: CALL LIGHT AND TABLE WITHIN REACH, SIDE RAILS UP X 2, BED IN LOWEST LOCKED POSITION. WILL CONTINUE TO MONITOR.
[2022-07-22 20:00] VITALS: BP 154/83
[2022-07-22] MEDS: ATORVASTATIN 10 MG TABLET PO SCH (21:38)
[2022-07-23] MEDS: ZOSYN IVPB 2.25 G in IV D5W 50ml IV SCH ×3 (00:03→11:17)
[2022-07-23] MEDS: IV NS 0.9% 1,000 ML IV PRN ×2 (04:55→15:07)
--- NOTE | 2022-07-23 06:45 | NUR ---
MS RN CLOSING NOTE PATIENT IN BED; AWAKE, A/O X 1-2. STABLE ON ROOM AIR. RESPIRATION EQUAL AND UNLABORED. IN NO ACUTE DISTRESS. NO S/SX OF PAIN OR DISCOMFORT NOTED AT THIS TIME. WITH IV ACCESS ON RIGHT FOREARM 2Og: PATENT AND INTACT INFUSING WITH NS 1L RUNNING @ 120 ML/HR; FLUSHES WELL. NO INFILTRATION NOTED. WITH VIRGEN CATH IN PLACE DRAINING VIA GRAVITY TO CLEAR YELLOW URINE OUTPUT. ALL NEEDS ATTENDED. SAFETY MEASURES MAINTAINED: CALL LIGHT AND TABLE WITHIN REACH, SIDE RAILS UP X 2, BED IN LOWEST LOCKED POSITION. ENDORSED TO MORNING SHIFT FOR THAIS.
--- NOTE | 2022-07-23 07:35 | NUR ---
MS RN OPENING NOTE RECEIVED PATIENT LYING IN BED; ASLEEP, EASILY AROUSABLE A/O X 1-2. STABLE ON ROOM AIR. BREATHING EVEN AND UNLABORED. NOT IN ANY APPARENT DISTRESS, DENIES PAIN NOR DISCOMFORT. WITH IV ACCESS ON RIGHT FOREARM 2Og, PATENT, INTACT AND INFUSING NS @ 120 ML/HR. NO INFILTRATION NOTED. WITH VIRGEN CATH IN PLACE DRAINING VIA GRAVITY TO CLEAR YELLOW URINE OUTPUT ABOUT 250 ML AT THIS MOMENT. SAFETY MEASURES IN PLACE: CALL LIGHT AND TABLE WITHIN REACH, SIDE RAILS UP X 2, BED IN LOWEST LOCKED POSITION. WILL CONTINUE TO MONITOR DURING MY SHIFT.
[2022-07-23] MEDS: ENSURE ENLIVE CHOC 237 ML CAN PO SCH (07:47)
[2022-07-23 08:00] VITALS: BP 132/88
[2022-07-23] MEDS: DOCUSATE SODIUM 100 MG CAPSULE PO SCH (08:30)
[2022-07-23] MEDS: DONEPEZIL 5 MG TABLET PO SCH (08:30)
[2022-07-23] MEDS: PROSOURCE / PROSTAT (PYXIS) 30 ML UDC PO SCH (08:30)
[2022-07-23] MEDS: DIVALPROEX SODIUM 125 MG TABLET.DR PO SCH (08:30)
[2022-07-23] MEDS: ACETAMINOPHEN 325 MG TABLET PO SCH (08:31)
[2022-07-23] MEDS: CLOTRIMAZOLE/BETAMETASONE DIPROPIONATE 15 GM TUBE TP SCH (09:27)
[2022-07-23] MEDS: CLOTRIMAZOLE 1% 15 GM TUBE TP SCH (09:29)
--- NOTE | 2022-07-23 11:05 | NUR ---
RN NOTES MATHIEU AT BEDSIDE, ANSWERED ALL HIS QUESTIONS REGARDING PT'S ACTIVITY AND FOOD INTAKE.
[2022-07-23 16:00] VITALS: BP 132/88
--- NOTE | 2022-07-23 17:30 | NUR ---
MS BARREL WATERER NOTE PT DISCHARGED TO [facility] IN STABLE CONDITION. PT A/OX 1-2, ABLE TO MAKE NEEDS KNOWN. ON ROOM AIR SATURATING WELL WITH SPO2 98%. NO SOB NOTED. NOT IN ANY SIGN OF RESPIRATORY DISTRESS. VITAL SIGNS TAKEN, STABLE, AND RECORDED. PT'S SKIN CONDITIONS ARE THE SAME UPON ADMISSION, SACRAL, GROIN REDNESS, LLE CELLULITIS SCAR, CHEST AND BACK RASHES - PICTURES TAKEN. DENIES PAIN OR DISCOMFORT AT THIS TIME. NO BELONGINGS NOTED. DISCHARGE INSTRUCTIONS RELAYED TO KENISHA TORRES OF [facility] - MEDS RECONCILIATION AND COVID TEST (NEGATIVE) GIVEN. IV ACCESS IN RFA G#20 REMOVED WITH NO ACTIVE BLEEDING NOTED. DRY PRESSURE DRESSING APPLIED AT SITE. VIRGEN CATHETER REMOVED WELL PER SNF REQUEST. PT LEFT THE UNIT AT 1725 VIA GURNEY ACCOMPANIED BY 2 PURCHASING MANAGER. MD AND CHARGE NURSE AWARE OF DISCHARGE.
== END 2022-07-23 17:25 | DRG 871 ==
LOC: ER 13:42 → TELE 17:39 → MED 07-22 10:09
PROVIDERS: ADMIT Nurse Practitioner Acute Care; ATTEND Student in an Organized Health Care Education/Training Program
DX: A41.9 Sepsis, unspecified organism (principal); G93.41 Metabolic encephalopathy; N17.0 Acute kidney failure with tubular necrosis; D68.59 Other primary thrombophilia; E44.0 Moderate protein-calorie malnutrition; J90 Pleural effusion, not elsewhere classified; N13.6 Pyonephrosis; J98.11 Atelectasis; Z87.440 Personal history of urinary (tract) infections; E78.5 Hyperlipidemia, unspecified; E86.1 Hypovolemia; F20.9 Schizophrenia, unspecified; L30.4 Erythema intertrigo; M19.90 Unspecified osteoarthritis, unspecified site; I12.9 Hypertensive chronic kidney disease with stage 1 through stage 4 chronic kidney disease, or unspecified chronic kidney disease; N18.9 Chronic kidney disease, unspecified; Z68.20 Body mass index [BMI] 20.0-20.9, adult; F03.90 Unspecified dementia, unspecified severity, without behavioral disturbance, psychotic disturbance, mood disturbance, and anxiety; L89.156 Pressure-induced deep tissue damage of sacral region; Z74.09 Other reduced mobility; B96.5 Pseudomonas (aeruginosa) (mallei) (pseudomallei) as the cause of diseases classified elsewhere; Z20.822 Contact with and (suspected) exposure to COVID-19; R53.1 Weakness; I95.9 Hypotension, unspecified; K57.30 Diverticulosis of large intestine without perforation or abscess without bleeding; M51.36 Other intervertebral disc degeneration, lumbar region; M41.86 Other forms of scoliosis, lumbar region; M85.80 Other specified disorders of bone density and structure, unspecified site
CPT/HCPCS: 36415; 71045-TC; 80048-TC; 80076-TC; 81001; 82962-TC; 83605-TC; 83735-TC; 84100-TC; 84484-TC; 85025-TC; 87040-TC; 87081-TC; 87086-TC; 87186-TC; 92526; 92611-TC; 97110-TC; 97112-TC; 97116-TC; 97530-TC; C9803; G0378; J2543; J3370; J7030; J7060

== ENCOUNTER 2022-09-26 11:00 | Emergency (ER) | payer BC ==
[~2022-09-26] VITALS: Ht 160 cm; Wt 49.9 kg
[~2022-09-26 11:00] MED LIST changes: +ACET-868 PO; +AMIN30LI2 PO; +ASCO-352 PO; +BISA10SU11 RC; -CLOT15CR35 TP; -COLL30OI TP; +CRAN425C6 PO; +DOCU-141 PO; -DOXY100T2 PO; -LACT-54 PO; +MAGN400O6 PO; +MULT-447 PO; +NA P133E RC; -OMEG-167 PO; -Prosource PO; +ZINC1CAP3 PO
--- NOTE | 2022-09-26 11:06 | NUR ---
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 per ems report patient was walking with caregiver and has a slip and fall. no loc endorsed. stable vitasls. 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 awaiting md weaver.
--- NOTE | 2022-09-26 11:07 | NUR ---
dr garcia at bedside for eval.
[2022-09-26] MEDS ORDERED: TDAP [DIPH/PERTUSSIS/TET] 0.5 ML VIAL IM ONE ×3 (11:23→11:50)
[2022-09-26] MEDS ORDERED: ACETAMINOPHEN 325 MG TABLET ONE (11:23)
[2022-09-26] MEDS ORDERED: ACETAMINOPHEN 325 MG TABLET PO ONE (11:30)
[2022-09-26] MEDS ORDERED: LIDOCAINE 1%-EPI 1:100,000 50 ML VIAL IJ ONE (12:00)
[2022-09-26] MEDS ORDERED: LIDOCAINE 1%-EPI 1:100,000 20 ML VIAL ONE (12:57)
--- NOTE | 2022-09-26 14:48 | NUR ---
wound care provided, laceration repaired using skin adhesive. patient's daughter at bedside to take patient home. discharge in stable condition.
[2022-09-26 14:51] VITALS: BP 136/82
== END 2022-09-26 14:51 | disposition home or self-care (01) ==
LOC: ER 11:30
DX: S01.81XA Laceration without foreign body of other part of head, initial encounter (principal); I10 Essential (primary) hypertension; F32.A Depression, unspecified; F41.9 Anxiety disorder, unspecified; Z87.440 Personal history of urinary (tract) infections; Z90.710 Acquired absence of both cervix and uterus; Z79.899 Other long term (current) drug therapy; W18.30XA Fall on same level, unspecified, initial encounter; Y93.89 Activity, other specified; Y92.009 Unspecified place in unspecified non-institutional (private) residence as the place of occurrence of the external cause; Y99.8 Other external cause status
CPT/HCPCS: 99284; 70450; 12013; 90471; 90715; J3490